=== PATIENT | female | born 1950 | race Caucasian/White ===

== ENCOUNTER → 2020-09-25 09:58 | Outpatient (CLI) | payer MEDICARE, OTHER, SELFPAY ==
--- NOTE | 2020-09-25 10:02 | US_ITS ---
STUDY: RENAL ULTRASOUND - COMPLETE REASON FOR EXAM: Female, 70 years old. H/O INTRACRANIAL ANEURYSM TECHNIQUE: Ultrasound evaluation of the kidneys was performed with real-time and static cartwright-scale imaging. COMPARISON: None. FINDINGS: RIGHT KIDNEY: Normal location of the right kidney, which is normal in size. The right kidney measures 9.6 cm x 4.2 cm x 4.3 cm. There is a normal cortex of the right kidney. The renal cortex measures 1.3 cm. There is no right renal mass or cyst. There are no right renal calculi. There is no right hydronephrosis. DISTAL RIGHT URETER: There is non-visualization of the distal right ureter. There is no demonstrated right ureterovesical junction calculus. There is a visualized right ureteral jet. LEFT KIDNEY: Normal location of the left kidney, which is normal in size. The left kidney measures 9.1 cm x 4.9 cm x 4.9 cm. There is a normal cortex of the left kidney. The renal cortex measures 1.5 cm. There is no left renal mass or cyst. There are no left renal calculi. There is no left hydronephrosis. DISTAL LEFT URETER: There is non-visualization of the distal left ureter. There is no demonstrated left ureterovesical junction calculus. There is a visualized left ureteral jet. BLADDER: The distended urinary bladder has a volume of 34 ml. There is a normal wall thickness of the distended urinary bladder. There is no demonstrated mass within the urinary bladder. There are no demonstrated bladder calculi. US/Kidney and Bladder IMPRESSION: Normal ultrasound of the kidneys and urinary bladder. Electronically Signed: Ramon Victor, at 12:36 EST , Service support ,
== END ==
PROVIDERS: PCP Family Medicine; Referring Provider Family Medicine; Visit Provider Family Medicine
DX: Z86.79 Personal history of other diseases of the circulatory system (principal)
CPT/HCPCS: 76770

== ENCOUNTER → 2020-10-07 11:06 | Outpatient (CLI) | payer MEDICARE, OTHER, SELFPAY ==
[2020-10-07 11:55] LABS: Amphetamine Urine VISTA NEGATIVE (<1000 ng/mL); Barbiturate Urine VISTA NEGATIVE (< 200 ng/mL); Benzodiazepine Urine VISTA NEGATIVE (< 200 ng/mL); Cocaine Urine VISTA NEGATIVE (< 300 ng/mL); Ecstacy Urine VISTA NEGATIVE (< 500 ng/mL); Methadone Urine VISTA NEGATIVE (< 300 ng/mL); PCP Urine VISTA NEGATIVE (< 25 ng/mL); THC Urine VISTA NEGATIVE (< 50 ng/mL); Vista UDS pH Range 6
== END ==
PROVIDERS: PCP Family Medicine; Referring Provider Anesthesiology Pain Medicine; Visit Provider Anesthesiology Pain Medicine
DX: F11.20 Opioid dependence, uncomplicated (principal)
CPT/HCPCS: 80307

== ENCOUNTER → 2020-10-13 11:15 | Outpatient (CLI) | payer MEDICARE, OTHER, SELFPAY ==
[2020-10-13 12:52] LABS: ALB/GLOB Ratio 1.1 RATIO (0.9-2.4); AST(SGOT) 39 U/L (15-37); Alanine Aminotransfer ALT/SGPT 51 U/L (13-56); Albumin, Serum 3.6 g/dL (3.2-5.0); Alkaline Phosphatase 91 U/L (45-117); Anion Gap 4 (5-15); BUN 16 mg/dL (7-18); BUN/Creat Ratio 18.7 RATIO (10-20); Calcium,Total 8.8 mg/dL (8.5-10.1); Chloride 108 mmol/L (98-107); Cholesterol 152 mg/dL (200); Creatinine, Serum 0.86 mg/dL (0.55-1.02); EST Glomerular Filtration Rate 70 mL/min (>60); Est Glom Filt Rate - Afr Amer 84 mL/min (>60); Globulin 3.2 g/dL (2.2-4.2); Glucose 90 mg/dL (74-106); High Density Lipoprotein 74 mg/dL; Potassium 3.7 mmol/L (3.5-5.1); Protein, Total 6.8 g/dL (6.4-8.2); Sodium Level 140 mmol/L (136-145); Thyroid Stim Hormone (TSH) 3.56 uIU/mL (0.358-3.74); Triglycerides 113 mg/dL; Very Low Density Lipoprotein 23 mg/dL (5-40)
== END ==
PROVIDERS: PCP Family Medicine; Visit Provider Family Medicine
DX: E78.5 Hyperlipidemia, unspecified (principal); K59.09 Other constipation
CPT/HCPCS: 36415; 80053; 80061; 84443

== ENCOUNTER → 2020-12-21 15:46 | Outpatient (CLI) | payer MEDICARE, OTHER, SELFPAY ==
[2020-12-21 17:51] LABS: Absolute Lymphocyte Count 1.69 X10^3/uL (0.83-4.51); Absolute Neutrophil Count 4.3 X10^3/uL (2.0-7.7); Basophil# 0.08 X10^3/uL; Basophil% 1.2 % (0-1); Eosinophil# 0.23 X10^3/uL; Eosinophils% 3.5 % (0-5); Hematocrit 40.6 % (37-47); Hemoglobin 12.7 g/dL (12.0-15.0); Lymphocyte # 1.69 X10^3/ul (4.0); Lymphocyte % 25.4 % (19-41); Mean Corp Hgb Conc 31.3 g/dL (32-36); Mean Corpuscular Volume 95.8 fL (81-99); Mean Platelet Vol. 10.3 fl (6.2-12.0); Monocyte# 0.36 X10^3/uL; Monocyte% 5.4 % (0-10); NRBC Flagged by Analyzer 0 % (0-5); Neutrophil # 4.28 X10^3/uL (2.7-7.7); Neutrophil % 64.2 % (47-70); Platelet Count 395 K/mm3 (150-450); RBC Distribution Width CV 12.5 % (11.6-14.6); RBC Distribution Width SD 44.3 fl (35.1-43.9); Red Blood Count 4.24 M/mm3 (4.2-5.4); White Blood Count 6.7 K/mm3 (4.4-11.0)
[2020-12-21 17:58] LABS: AST(SGOT) 21 U/L (15-37); Alanine Aminotransfer ALT/SGPT 25 U/L (13-56); Albumin, Serum 4.1 g/dL (3.2-5.0); Alkaline Phosphatase 83 U/L (45-117); Amylase 45 U/L (25-115); Bilirubin, Direct 0.09 mg/dL (0.00-0.30); Lipase 130 U/L (73-393); Protein, Total 7.1 g/dL (6.4-8.2)
== END ==
PROVIDERS: PCP Family Medicine; Visit Provider Family Medicine
DX: R10.9 Unspecified abdominal pain (principal)
CPT/HCPCS: 36415; 80076; 82150; 83690; 85025

== ENCOUNTER → 2021-01-11 16:46 | Outpatient (CLI) | payer MEDICARE, OTHER, SELFPAY ==
--- NOTE | 2021-01-11 16:50 | RAD_ITS ---
STUDY: X-RAY CHEST REASON FOR EXAM: Female, 70 years old. CHRONIC COUGH TECHNIQUE: PA and lateral views of the chest. COMPARISON: None. FINDINGS: There are 2 separate 1 cm nodules in the lower left lung which likely represent calcified granulomata. Correlation with prior chest x-rays or chest CT is recommended. There is no demonstrated pleural abnormality. Normal size heart. Normal mediastinum and bakari. Normal visualized pulmonary arteries. Normal visualized aortic arch and descending thoracic aorta. Normal visualized thoracic spine. Normal visualized ribs, clavicles, and shoulders. There is no demonstrated abnormality of the visualized soft tissue structures of the upper abdomen. RAD/Chest PA and Lateral IMPRESSION: 2 left lung nodules in correlation with prior chest x-rays or chest CT is recommended. Electronically Signed: Edin Bridges MD at 15:27 EDT Tel , Service support ,
== END ==
PROVIDERS: PCP Family Medicine; Referring Provider Family Medicine; Visit Provider Family Medicine
DX: R05 Cough (principal)
CPT/HCPCS: 71046

== ENCOUNTER → 2021-01-22 08:06 | Outpatient (CLI) | payer MEDICARE, OTHER, SELFPAY ==
--- NOTE | 2021-01-22 08:10 | CT_ITS ---
STUDY: CT CHEST WITH CONTRAST REASON FOR EXAM: Female, 70 years old. CHRONIC COUGH for 10 years. Recurrent bronchitis. Questionable left lower lobe nodules. RADIATION DOSAGE (If Supplied By Facility): CTDIvol = ( 8.77 ) mGy, DLP = ( 275.41 ) mGycm TECHNIQUE: Transaxial imaging was performed following intravenous administration of IV 100mL Isovue-300. Multiplanar coronal and sagittal images were reformatted. Individualized dose optimization techniques were used for this CT. COMPARISON: Comparison is made with prior chest radiograph dated 01/11/2021. FINDINGS: Small bilateral axillary lymph nodes. 27.9 mm partially calcified granuloma in the posterior aspect of the right upper lobe. There is a 7.2 mm partially calcified nodule in the superior lateral segment of the left lower lobe. There is also evidence of a 7.6 mm partially calcified nodule in the peripheral lateral aspect of the left lower lobe. There is no demonstrated pleural abnormality. Normal heart and pericardium. Normal mediastinum. Normal hilar regions. Normal enhanced pulmonary arteries. Normal aorta arch and descending thoracic aorta. Normal osseous structures. There is a 1.3 cm cyst in the upper lateral aspect of the spleen. CT/Chest WITH Contrast IMPRESSION: Subcentimeter bilateral calcified granulomas. Small cyst in the upper lateral aspect of the spleen. Electronically Signed: Ramon Victor MD at 12:46 EDT , Service support ,
--- NOTE | 2021-01-23 08:57 | PFTCOMP ---
INTRODUCTION: The patient is a 70-year-old female that presents for pulmonary function studies secondary to a diagnosis of chronic cough. Respiratory therapy reports good patient effort. Bronchodilators were used during testing. INTERPRETATION: Forced expiration spirometry demonstrates no evidence of a large airways obstructive ventilatory defect. There was no significant response to aerosolized bronchodilators. Spirograms are of good quality and plateau normally. The respiratory flow volume loop is normal. Body plethysmography was performed and reveals lung volumes to be within normal limits. Diffusing capacity by single breath CO is also within normal limits. IMPRESSION: Grossly normal pulmonary function studies.
== END ==
PROVIDERS: PCP Family Medicine; Referring Provider Family Medicine; Visit Provider Family Medicine
DX: R05 Cough (principal); R91.1 Solitary pulmonary nodule
CPT/HCPCS: 71260; 94060; 94726; 94729; Q9967

== ENCOUNTER → 2021-07-12 16:08 | Outpatient (CLI) | payer MEDICARE, OTHER, SELFPAY ==
[2021-07-12 17:20] LABS: Erythrocyte Sedimentation Rate 1 mm/hr (0-30)
[2021-07-14 17:25] LABS: Angiotensin Convert Enzyme 39 U/L (14-82)
== END ==
PROVIDERS: PCP Family Medicine; Referring Provider Internal Medicine Pulmonary Disease; Visit Provider Internal Medicine Pulmonary Disease
DX: R05.9 Cough, unspecified (principal)
CPT/HCPCS: 36415; 82164; 85652

== ENCOUNTER → 2021-07-30 11:36 | Outpatient (CLI) | payer MEDICARE, OTHER, SELFPAY ==
--- NOTE | 2021-07-30 11:38 | RAD_ITS ---
PROCEDURE: LUMBAR MYELOGRAM DATE OF EXAMINATION: 07/30/2021. INDICATION: Female, 71 years old. Low back pain. PHYSICIAN: Ramon Victor M.D. CONSENT: The patient''s history and physical findings were reviewed. The lumbar myelogram procedure was discussed with the patient prior to signing a consent. SEDATION: Local anesthesia with 5 mL of 1% lidocaine was used. FLUOROSCOPY TIME (if supplied): (1:54) minutes/seconds. 4 images were obtained. Injection Information: 20 cc of ISOVUE-M 200 Number of images obtained: 4 TECHNIQUE: Digital fluoroscopy was used to identify a safe approach for the lumbar myelogram. The back was prepped and draped in usual fashion. Local anesthesia was utilized. Under fluoroscopic guidance a 22-gauge spinal needle was inserted into the spinal canal at the L2-L3 level. Clear spinal fluid was seen. 20 mL of Isovue 200 M was injected into the spinal canal. There is good opacification of the spinal fluid. There is evidence of a moderate degree of spinal stenosis at the L3-L4, and L4-L5 levels. Minimal anterior listhesis of L3 on L4. Multilevel disc space narrowing. There is no extradural defects. RAD/Lumbar Myelogram IMPRESSION: Spinal stenosis at the L3-L4 and L4-L5 levels. CT scan will follow The patient tolerated the procedure well. Electronically Signed: Ramon Victor MD at 13:39 EST , Service support ,
--- NOTE | 2021-07-30 11:38 | CT_ITS ---
STUDY: CT LUMBAR SPINE WITH INTRATHECAL CONTRAST (LUMBAR CT MYELOGRAM) REASON FOR EXAM: Female, 71 years old. Pain -- with Myelogram RADIATION DOSAGE (If Supplied By Facility): CTDIvol = ( 13.84 ) mGy, DLP = ( 391.88 ) mGycm TECHNIQUE: Transaxial images were obtained from the L1 vertebra through the S1 level, following intrathecal administration of 20 ml of ISOVUE-M 200 contrast material, performed by Dr. Kayleigh CANDELARIA. Please refer to this physicians technical notes for procedural details. Coronal and sagittal reconstructions were obtained. Individualized dose optimization techniques were used for this CT. COMPARISON: None. FINDINGS: Normal lumbar lordosis. There is no substantial scoliosis. Normal vertebrae of the lumbar spine. There is dependent layering of contrast material in the distal thecal sac. The conus medullaris terminates in a normal position at the L1-L2 level. There is no demonstrated cauda equina nerve root abnormality or intraspinal mass. L1-2: Normal endplates. Normal disc height and morphology. Normal bilateral facet joints. Normal central canal and bilateral lateral recesses. Normal bilateral intervertebral neural foramina. L2-3: Normal endplates. Normal disc height and morphology. Normal bilateral facet joints. Normal central canal and bilateral lateral recesses. Normal bilateral intervertebral neural foramina. L3-4: Marked degree of disc space narrowing and disc degeneration with subchondral sclerosis. Grade 1 anterolisthesis of L3 on L4. Marked degree of central canal stenosis due to the hypertrophy of the facet joints as well as the ligamenta flava. Mild diffuse posterior disc bulge. The spinal stenosis is also caused by the anterior listhesis of L3 on L4. L4-5: The disc spaces relatively well maintained. Mild degree of diffuse anterior disc bulge causing minimal deformity of the thecal sac. Mild degree of central canal stenosis. Hypertrophy of the facet joints and ligamentum flavum. L5-S1: Normal endplates. Normal disc height and morphology. Normal bilateral facet joints. Normal central canal and bilateral lateral recesses. Normal bilateral intervertebral neural foramina. Normal visualized sacroiliac joints. Normal visualized paraspinous soft tissue structures. CT/Spine Lumbar WITH Contrast IMPRESSION: Spinal stenosis at the L3-L4 level caused by combination of anterior listhesis of L3 on L4 as well as facet joint osteoarthritis and hypertrophy of the ligamentum flavum and diffuse central disc bulge. Electronically Signed: Ramon Victor MD at 14:34 EST , Service support ,
[2021-07-30 12:03] VITALS: BP 108/49; PULSE 80; RESP 16; TEMP 36.9; O2SAT 98; BMI 24.7
[2021-07-30] MEDS: Lidocaine 2% (5ml sdv) 5 ML VIAL.MPF INFILT (12:15)
[2021-07-30 12:48] VITALS: BP 105/49; PULSE 65; RESP 16; O2SAT 94
[2021-07-30 13:42] VITALS: BP 105/54; PULSE 66; RESP 16; O2SAT 98
== END | disposition home or self-care (01) ==
PROVIDERS: PCP Registered Nurse; Referring Provider Orthopaedic Surgery; Visit Provider Orthopaedic Surgery
DX: M51.36 Other intervertebral disc degeneration, lumbar region (principal)
CPT/HCPCS: 62304; 72132

== ENCOUNTER → 2021-08-09 16:37 | Outpatient (CLI) | payer MEDICARE, OTHER, SELFPAY ==
--- NOTE | 2021-08-09 16:45 | RAD_ITS ---
INDICATION: HIP/BACK PAIN EXAMINATION/TECHNIQUE: X-RAY - LEFT XR Hip Unilateral with Pelvis when performed; 2-3 Views 3 VIEWS. AP view the pelvis. 2 views of the left hip. COMPARISON: Lumbar spine radiograph from 07/02/2021. FINDINGS: Left hip total arthroplasty postoperative changes with intact appearance of the surgical hardware. No acute fracture or dislocation. Moderate right femoral acetabular joint osteoarthritis. Mild pubic symphysis degenerative changes. Bilateral sacroiliac joints are intact. No destructive osseous lesions. Soft tissues are unremarkable. Visualized abdomen is unremarkable. RAD/HIP, UNI W/ Pelvis 2-3 Views IMPRESSION: 1. Left hip total arthroplasty postoperative changes with intact appearance of the surgical hardware. 2. No acute findings. Electronically Signed: Vladislav Morejon MD at 8:12 EST Tel , Service support ,
== END ==
PROVIDERS: PCP Registered Nurse; Referring Provider Anesthesiology Pain Medicine; Visit Provider Anesthesiology Pain Medicine
DX: M54.9 Dorsalgia, unspecified (principal); M25.559 Pain in unspecified hip
CPT/HCPCS: 73502

== ENCOUNTER → 2021-09-06 09:23 | Outpatient (CLI) | payer MEDICARE, OTHER, SELFPAY ==
--- NOTE | 2021-09-06 09:27 | BI_ITS ---
MAMMOGRAPHY - UNILATERAL DIAGNOSTIC: LEFT BREAST REASON FOR EXAM: Female, 71 years old. Abnormal screening mammogram. PERTINENT HISTORY: Non-contributory. TECHNIQUE: Compression spot views and 90 degree lateral view of the left breast were obtained. CAD: Full Field Digital Mammography with Computer Added Detection was performed. COMPARISON: Comparison is made with prior abdomen examination dated 07/28/2021 FINDINGS: Breast Composition: There are scattered areas of fibroglandular density. There are no dominant masses or suspicious calcifications. The previously seen area of architectural distortion is not seen at this time. No other significant abnormalities are identified. BI/DIAG MAMM W/CAD, UNILAT IMPRESSION: Stable unilateral diagnostic mammogram. One year follow-up mammogram recommended. (A) ASSESSMENT CATEGORY: BIRADS Category 2: Benign. A letter regarding these results will be sent to the patient by the facility within 30 days. Approximately 10% of breast cancers are not detected by mammography. A normal mammogram should not delay biopsy of a clinically suspicious abnormality. Electronically Signed: Ramon Victor MD at 10:49 EST , Service support ,
[2021-09-06 16:39] LABS: Amphetamine Urine VISTA NEGATIVE (<1000 ng/mL); Barbiturate Urine VISTA NEGATIVE (< 200 ng/mL); Benzodiazepine Urine VISTA NEGATIVE (< 200 ng/mL); Cocaine Urine VISTA NEGATIVE (< 300 ng/mL); Ecstacy Urine VISTA NEGATIVE (< 500 ng/mL); Methadone Urine VISTA NEGATIVE (< 300 ng/mL); PCP Urine VISTA NEGATIVE (< 25 ng/mL); THC Urine VISTA NEGATIVE (< 50 ng/mL); Vista UDS pH Range 5
== END ==
PROVIDERS: PCP Registered Nurse; Referring Provider Family Medicine; Visit Provider Family Medicine
DX: R92.8 Other abnormal and inconclusive findings on diagnostic imaging of breast (principal); F11.20 Opioid dependence, uncomplicated
CPT/HCPCS: 77065; 80307

== ENCOUNTER 2021-10-04 14:43 | Outpatient (CLI) | payer MEDICARE, OTHER, SELFPAY ==
--- NOTE | 2021-10-04 14:46 | RAD_ITS ---
STUDY: X-RAY - ABDOMEN/PELVIS REASON FOR EXAM: Female, 71 years old. ABD PAIN TECHNIQUE: AP supine and upright views of the abdomen and pelvis. COMPARISON: None. FINDINGS: Normal visualized lung bases. There is an unremarkable bowel gas pattern. There is no demonstrated free abdominal air. The visualized liver, spleen and kidneys are grossly normal in size and morphology. Normal soft tissue structures. Mild levoscoliosis lumbar spine with degenerative disc disease. Status post left hip arthroplasty. RAD/Abd Inc Decub and/or Erect IMPRESSION: Normal x-ray examination of the abdomen and pelvis. Electronically Signed: Edin Bridges MD at 15:12 EST Tel , Service support ,
--- NOTE | 2021-10-04 14:55 | RAD_ITS ---
STUDY: X-RAY CHEST REASON FOR EXAM: Female, 71 years old. SOB TECHNIQUE: PA and lateral views of the chest. COMPARISON: 01/11/2021 FINDINGS: Patchy alveolar opacities in both lungs consistent with bilateral pneumonia. There is no demonstrated pleural abnormality. Normal size heart. Normal mediastinum and bakari. Normal visualized pulmonary arteries. Normal visualized aortic arch and descending thoracic aorta. Normal visualized thoracic spine. Normal visualized ribs, clavicles, and shoulders. There is no demonstrated abnormality of the visualized soft tissue structures of the upper abdomen. RAD/Chest PA and Lateral IMPRESSION: Bilateral patchy pneumonia. Electronically Signed: Edin Bridges MD at 15:12 EST Tel , Service support ,
[2021-10-04 17:51] LABS: Absolute Neutrophil Count 3.1 X10^3/uL (2.0-7.7); Basophil# 0.07 X10^3/uL; Basophil% 1.2 % (0-1); Eosinophil# 0.21 X10^3/uL; Eosinophils% 3.7 % (0-5); Hematocrit 36.7 % (37-47); Lymphocyte % 33.6 % (19-41); Mean Corp Hgb Conc 32.7 g/dL (32-36); Mean Corpuscular Hgb 30.8 pg (27.0-32.0); Mean Corpuscular Volume 94.1 fL (81-99); Mean Platelet Vol. 10.9 fl (6.2-12.0); Monocyte# 0.37 X10^3/uL; Monocyte% 6.5 % (0-10); NRBC Flagged by Analyzer 0 % (0-5); Neutrophil % 54.8 % (47-70); Platelet Count 354 K/mm3 (150-450); RBC Distribution Width CV 12.4 % (11.6-14.6); RBC Distribution Width SD 42.5 fl (35.1-43.9); White Blood Count 5.7 K/mm3 (4.4-11.0)
[2021-10-04 18:08] LABS: ALB/GLOB Ratio 1.2 RATIO (0.9-2.4); AST(SGOT) 27 U/L (15-37); Alanine Aminotransfer ALT/SGPT 33 U/L (13-56); Albumin, Serum 3.9 g/dL (3.2-5.0); Alkaline Phosphatase 77 U/L (45-117); Anion Gap 8 (5-15); BUN 13 mg/dL (7-18); Calcium,Total 10.2 mg/dL (8.5-10.1); Chloride 102 mmol/L (98-107); Creatinine, Serum 0.87 mg/dL (0.55-1.02); EST Glomerular Filtration Rate 68 mL/min (>60); Est Glom Filt Rate - Afr Amer 82 mL/min (>60); Ferritin 48 ng/mL (8-252); Globulin 3.3 g/dL (2.2-4.2); Glucose 112 mg/dL (74-106); Iron 58 ug/dL (50-170); Potassium 3.4 mmol/L (3.5-5.1); Protein, Total 7.2 g/dL (6.4-8.2); Sodium Level 139 mmol/L (136-145)
== END 2021-10-04 23:59 | disposition short-term general hospital (02) ==
LOC: MTLAB 14:45
PROVIDERS: PCP Family Medicine; Referring Provider Family Medicine; Visit Provider Family Medicine
DX: R10.9 Unspecified abdominal pain (principal); R42 Dizziness and giddiness; R06.02 Shortness of breath
CPT/HCPCS: 36415; 71046; 74019; 80053; 82728; 83540; 85025

== ENCOUNTER 2021-10-05 16:14 | Outpatient (CLI) | payer MEDICARE, OTHER, SELFPAY | END 2021-10-05 23:59 | disposition short-term general hospital (02) | PROVIDERS: PCP Family Medicine; Referring Provider Family Medicine; Visit Provider Family Medicine | DX: Z20.822 Contact with and (suspected) exposure to COVID-19 (principal) | CPT/HCPCS: 87635; U0003; U0005 ==

== ENCOUNTER → 2022-02-07 | Outpatient (CLI) | payer MEDICARE, OTHER, SELFPAY ==
[2022-02-07 14:34] LABS: Amphetamine Urine VISTA NEGATIVE (<1000 ng/mL); Barbiturate Urine VISTA NEGATIVE (< 200 ng/mL); Benzodiazepine Urine VISTA NEGATIVE (< 200 ng/mL); Cocaine Urine VISTA NEGATIVE (< 300 ng/mL); Ecstacy Urine VISTA NEGATIVE (< 500 ng/mL); Methadone Urine VISTA NEGATIVE (< 300 ng/mL); PCP Urine VISTA NEGATIVE (< 25 ng/mL); THC Urine VISTA NEGATIVE (< 50 ng/mL); Vista UDS pH Range 7
== END | disposition home or self-care (01) ==
LOC: LAB 13:05
PROVIDERS: PCP Family Medicine; Referring Provider Anesthesiology Pain Medicine; Visit Provider Anesthesiology Pain Medicine
DX: F11.20 Opioid dependence, uncomplicated (principal)
CPT/HCPCS: 80307

== ENCOUNTER → 2022-08-09 | Outpatient (CLI) | payer MEDICARE, OTHER, SELFPAY ==
--- NOTE | 2022-08-09 18:21 | US_ITS ---
STUDY: ABDOMINAL ULTRASOUND - RIGHT UPPER QUADRANT REASON FOR VISIT: Female, 72 years old RUQ PAIN SEVERE TECHNIQUE: Ultrasound evaluation of the right upper quadrant was performed with real-time and static reyes-scale imaging. TECHNICAL QUALITY: Adequate. COMPARISON: None. FINDINGS: Liver: The liver measures 14.6 cm. There is normal echogenicity of the liver. The bile ducts are within normal limits. There is hepatic color flow. The direction of portal flow is hepatopetal. There is no demonstrated mass lesion. Gallbladder: Normal distended gallbladder. The gallbladder wall measures 2 mm. There is a negative sonographic Lynn''s sign. There is no pericholecystic fluid. There are no gallstones. Common Bile Duct (C.B.D.): The common bile duct measures 5 mm. Pancreas: Normal size of the head, body and tail of the pancreas. There is normal echogenicity of the pancreas. There is no demonstrated pancreatic mass or cyst. Right Kidney: Normal size of the right kidney. The right kidney measures 9.5 cm. Normal renal cortex. The right cortex measures 1.2 cm. There is 1.1 cm cyst There is no right hydronephrosis. US/Abdomen Limited IMPRESSION: No gallstones or biliary dilatation. Small renal cyst. Electronically Signed: Omer Ramirez MD at 19:17 EST ,
== END | disposition home or self-care (01) ==
LOC: US 18:19
PROVIDERS: PCP Family Medicine; Visit Provider Family Medicine
DX: R10.11 Right upper quadrant pain (principal)
CPT/HCPCS: 76705

== ENCOUNTER → 2023-03-16 | Outpatient (CLI) | payer MEDICARE, OTHER, SELFPAY ==
--- NOTE | 2023-03-16 10:56 | BD_ITS ---
STUDY: DUAL ENERGY X-RAY ABSORPTIOMETRY / DXA REASON FOR EXAM: Female, 72 years old. [id number] TECHNIQUE: Bone Mineral Density (BMD) measurements of lumbar spine and right hip were obtained. COMPARISON: None. FINDINGS: Lumbar Spine (L1-L4): g/cm2 (0.905) / T-score (-1.0) / Z-score (1.3) Findings are suggestive of osteopenia with a low fracture risk. Right Femur Total: g/cm2 (0.802) / T-score (-1.2) / Z-score (0.6) Right Femoral Neck: g/cm2 (0.647) / T-score (-1.8) / Z-score (0.2) BD/Dexa Bone Density Study IMPRESSION: The patient is considered osteopenic as outlined below according to World Tom Organization (WHO) criteria with a moderate fracture risk. Reference Information: The T-score is the number of standard deviations above or below the standard which is normal for young adults at their peak bone mineral density. The World Health Organization (WHO) interprets the T-scores as follows: Above -1 Normal bone density Between -1 and -2.5 Osteopenia Equal to / or below -2.5 Osteoporosis As a practical clinical guideline, osteopenia may be graded as follows: Mild -1 through -1.5 Moderate -1.6 through -2.0 Severe -2.1 through -2.4 The Z-score is the number of standard deviations above or below age-matched controls. A Z-score of less than -1.5 would be considered abnormal. References: 1. NIH Osteoporosis and Related Bone Diseases www osteo.org 2. International Society for Clinical Densitometry www iscd.org 3. National Osteoporosis Foundation www nof.org Electronically Signed: Ramon Victor MD at 10:04 EDT ,
== END | disposition home or self-care (01) ==
LOC: OPBD 10:37
PROVIDERS: PCP Family Medicine; Referring Provider Family Medicine; Visit Provider Family Medicine
DX: N95.9 Unspecified menopausal and perimenopausal disorder (principal)
CPT/HCPCS: 77080

== ENCOUNTER → 2023-03-20 | Outpatient (CLI) | payer MEDICARE, OTHER, SELFPAY ==
[2023-03-20 15:02] LABS: Absolute Lymphocyte Count 1.31 X10^3/uL (0.83-4.51); Absolute Neutrophil Count 3.9 X10^3/uL (2.0-7.7); Basophil# 0.08 X10^3/uL; Basophil% 1.4 % (0-1); Eosinophil# 0.26 X10^3/uL; Eosinophils% 4.4 % (0-5); Hematocrit 38.2 % (37-47); Hemoglobin 11.9 g/dL (12.0-15.0); Lymphocyte # 1.31 X10^3/ul (0.83-4.51); Lymphocyte % 22.2 % (19-41); Mean Corp Hgb Conc 31.2 g/dL (32-36); Mean Corpuscular Volume 96.2 fL (81-99); Mean Platelet Vol. 9.6 fl (6.2-12.0); Monocyte# 0.31 X10^3/uL; Monocyte% 5.2 % (0-10); NRBC Flagged by Analyzer 0 % (0-5); Neutrophil # 3.94 X10^3/uL (2.7-7.7); Neutrophil % 66.6 % (47-70); Platelet Count 355 K/mm3 (150-450); RBC Distribution Width CV 12.5 % (11.6-14.6); RBC Distribution Width SD 43.6 fl (35.1-43.9); Red Blood Count 3.97 M/mm3 (4.2-5.4); White Blood Count 5.9 K/mm3 (4.4-11.0)
[2023-03-20 15:19] LABS: CRP < 2.90 mg/L (0.0-3.0)
[2023-03-20 16:14] LABS: Erythrocyte Sedimentation Rate 5 mm/hr (0-30)
== END | disposition home or self-care (01) ==
LOC: MTLAB 14:19 → LAB 14:28
PROVIDERS: PCP Family Medicine; Referring Provider Orthopaedic Surgery; Visit Provider Orthopaedic Surgery
DX: M25.552 Pain in left hip (principal); Z86.79 Personal history of other diseases of the circulatory system; Z96.649 Presence of unspecified artificial hip joint
CPT/HCPCS: 36415; 83605; 85025; 85652; 86140

== ENCOUNTER 2023-05-11 11:00 | Outpatient (RCR) | payer MEDICARE, OTHER, SELFPAY ==
--- NOTE | 2023-03-14 08:22 | HP.PTEVAL ---
Patient's Visit Information INDY CLANCY is a 72 year old F referred to Physical Therapy by KIKI Gandhi with a diagnosis of SPINAL STENOSIS LUMBAR , INTERVERTEBRAL DISC DEGENERATION ,KNEE OA. Date of Evaluation: 03/14/23 Physical Therapist: Gideon Zaragoza, PT, Cert MDT, OCS - Visit Plan Frequency: 2x /Week Duration: 4 Weeks Plan: PT INTERVTIONS AQUATIC THERAPY DLS ,LEFTQUADS/HAMS/HIP STRENGTHNEING ,POSTURAL EX'S - Subjective This 72 y/o female presents to physical therapy left hip hip ,knee pain and back pain. Patient has had hip pain September 2022 with h/o left THR [address] marquez possible bursitis . Patient x-rays showed everything looked fine. Patient had knee pain and had injection which helped. Patient had x-rays and CATSCAN 2020 showed severe DDD and stenosis. Patient has seen Dr Kasper for back pain and is nor bad enough to have surgery. Patient location lateral hip /pelvis to groin . Patient mainly c/o of lateral hip pain. Medication Celebrex. Aggravating factors sitting ,unbale to lift ,bending ,twisting . Alleviating factors more tolerable. Patient has rollator and uses cane. Patient c/o paresthesia/tingling left calf and thigh. Patient coughing/sneezing-. Bowel /bladder- Patient has pain with stairs and is difficult. Patient pain affects sleeping. Patient pain and difficulty from chair. Patient has had pain management in past. Patient plan get injection epidural Dr Kang. Patient condition affects QOL and function. Patient goals to decrease pain. SOCIAL: . VOCATION: retired - Pain Left Knee Pain Intensity (Out of 10): 9 Pain Intensity Range: 10 - Objective POSTURE: mild forward posture hip/knees flexes. NEURO: c/o paresthesia/tingling ,reflexes L3-4,L4-5,L5-S1 1/3. PALPATION: inferior pelvis. GAIT: ambulates with antalgic gait decrease stance with pain antalgic left side slow jayme. LUMBAR ROM: flexion mod loss pain ,extension mod loss pain ,side glides mod loss pain. HIP AROM: hip flexion 105 degrees, hip abduction 40 degrees. KNEE AROM: 0-125 degrees. MMT:( peak force) left quads 0 ,hip abduction ,hip flexion 0 , hamstrings 5.8 - Special Tests L/S Slump test left side: Negative L/S Slump test right side: Negative L/S Left Straight Leg Raise: Negative L/S Right Straight Leg Raise: Negative Lumbar Standing: Flexion - Mechanical Response: No effect Lumbar Standing: Flexion - Symptoms During Testing: Increases Lumbar Standing: Flexion - Symptoms After Testing: Worse Comments:: hip Lumbar Standing: Extension - Mechanical Response: No effect Lumbar Standing: Extension - Symptoms During Testing: Increases Lumbar Standing: Extension - Symptoms After Testing: Worse Comments:: hip Lumbar Standing: Right Side Glides - Mechanical Response: No effect Lumbar Standing: Right Side [place] - Symptoms During Testing: No effect Lumbar Standing: Right Side [place] - Symptoms After Testing: No effect Lumbar Standing: Left Side [place] - Mechanical Response: No effect Lumbar Standing: Left Side [place] - Symptoms During Testing: Increases Lumbar Standing: Left Side [place] - Symptoms After Testing: Worse Comments:: hip L Hip Scour: Negative L Knee Gagandeep - Meniscus: Negative L Knee Valgus - MCL: Negative L Knee Varus - LCL: Negative L Knee Patellar Apprehension - PFS: Negative - Balance/Special Test Scores Lower Extremity Functional Score: 14 - Goals Goal 1:: I with Aquatic therapy for back and hip Goal Time Frame: 4-6 Weeks Goal 2:: Patient to demonstrate 50% improvement with decrease hip pain to improve gait Goal Time Frame: 4-6 Weeks Goal 3:: Patient to improve peak force quads/hams/hip by 10# to improve gait Goal Time Frame: 4-6 Weeks Goal 4:: Patient to improve lumbar ROM for function of recovery to tie shoes Goal Time Frame: 4-6 Weeks Goal 5:: Patient to improve LFES score by 5 points to improve gait Goal Time Frame: 4-6 Weeks Goal 6:: Patient gait with less antalgic gait 50% with less pain Goal Time Frame: 4-6 Weeks - Rehabilitation Potential Physical Therapy Diagnosis: This patient has lumbar stenosis with pain lateral hip pelvis to groin worse with positioning ,motion testing with mod loss of motion with pain ,weakness of hip and knee, hip looks good confirms [facility] showed severe DDD and stenosis thus benefit from skilled PT Rehabilitation Potential: Good - Anticipated Interventions Patient/Client Instruction: Educate patient on: Condition, Plan of Care For the Purpose of:: To decrease pain, To increase ROM, To improve muscle performance and motor function, To increase tolerance to activity/condition/position, To improve ability of physical actions for home/community/work/leisure, To improve health of tissue, To decrease soft tissue restriction, To increase flexibility/ROM, To prevent re-injury Therapeutic Exercise to Include: Strength training, Endurance training, Balance training, Postural training, Flexibilty training, In an aquatic setting, Active ROM, Dynamic Lumbar Stabilization Comment: HIP/KNEE For the Purpose of:: To decrease pain, To increase ROM, To improve muscle performance and motor function, To increase tolerance to activity/condition/position, To improve ability of physical actions for home/community/work/leisure, To improve health of tissue, To decrease soft tissue restriction, To increase flexibility/ROM, To improve endurance, To improve balance, To improve tolerance to ADL's Thank you for the opportunity to evaluate your patient. For Medicare and Medicare HMO plans, please review the plan of care and approve it. It will need to be FAXED BACK to us at [phone] for Medicare purposes. For Medicare only, by signing this I certify the plan of care. Please let me know if there are questions or concerns regarding this plan of care. Physician Signature: Date:
--- NOTE | 2023-04-26 11:21 | HP.PTEVAL2 ---
Patient's Visit Information Visit Information Visit Information: INDY CLANCY is a 72 year old F referred to Physical Therapy by KIKI Gandhi with a diagnosis of L greater trochanteric bursitis. Date of Evaluation: 04/25/23 Physical Therapist: Toby Montoya DPT Visit Plan Frequency: 2x /Week Duration: 4 Weeks Plan: Start with US to gluteal/piriformis region. Add in gentle piriformis stretching, progressing to glute max/med strenghtening and hip Er strengthening. Subjective Subjective: Pt. is here today for her initial evaluation with diagnosis of L greater trochanter bursitis. Pt. reports having pain for a few months now. Pt. was treated for her back and had injections, but did not change her pain much. Pt. c/o pain at her L hip, mostly in gluteal region and down her L leg. Pt. reports some N/T, but not much. Pt. did have an injection in her hip, which has helped a little bit. Pt. reports some leg weakness, but mostly pain. Pt. does have some issues. Pt. does not feel like it is her back. Pt. reports pain can be intermittent. She can walk better sometimes, then worse others. Pt. reports increased pain with standing and worse with sitting. Pain L hip: Intensity: 4 Pain Intensity Range: 3 and 8 Objective Objective: POSTURE: Pt. has flexed posture and wt. shift to R side. PALPATION: pt. had levels of pain at L gluteal region, and posterior aspect of L greater trochanter. NEURO: normal throughout. ROM: L hip: flexion 85deg, abd 45deg, ext no measured. LUMBAR SPINE: min loss throughout mild increase NW. MMT: L hip: flexion 3+/5, abd 3+5, ext 4/5. Cor strength: poor+. GAIT: pt. ambulates with antalgic pattern, but did have bouts where it was much better. No much groin pain noted. Special Tests Slump test left side: Negative Slump test right side: Negative Left Straight Leg Raise: Negative Right Straight Leg Raise: Negative Trendelenberg - Glut Medius: Positive Goals Goal 1:: LTG: Pt. to be I with HEP. Goal Time Frame: 4-6 Weeks Goal 2:: LTG: pt. to be able to ambulate with SPC with normal gait pattern without increase in symptoms. Goal Time Frame: 4-6 Weeks Goal 3:: LTG: pt. to have 4+/5 LLE strength. Goal Time Frame: 4-6 Weeks Goal 4:: STG: Pt. to sleep throughout the night without increase in symptoms. Goal Time Frame: 2-4 Weeks Goal 5:: LTG: Pt. to negotiate steps with 1 HR with reciprocal pattern without increase in symptoms. Rehabilitation Potential Physical Therapy Diagnosis: Pt. has signs and symptoms consistent with greater trochanteric bursitis. Pt. has some signs suggesting lumbar spine involvement, but others that do not. She has weakness in her leg, but has a high level of pain which is not fully consistent with trochanteric bursitis as well. I will work on her L hip to calm her symptoms and progress to strengthening in order to reduce stress to lateral hip musculature with gait and functional mobility. Rehabilitation Potential: Excellent Anticipated Interventions Patient/Client Instruction: Educate patient on: Condition, Plan of Care, Risk Factors and Benefits of Fitness Program For the Purpose of:: To improve decision making, To facilitate caregiver knowledge, To improve self management, To prevent re-injury and To improve ability to perform tasks related to life management Therapeutic Exercise to Include: Strength training, Power training, Endurance training, Balance training, Postural training, Flexibilty training, Passive ROM and Active ROM For the Purpose of:: To decrease pain, To increase ROM, To improve nutrient delivery to tissue, To increase oxygenation perfusion, To improve health of tissue, To decrease soft tissue restriction and To increase flexibility/ROM Cryotherapy (ice pack, ice massage): Yes Thermo therapy (hot pack): Yes Ultrasound (thermal/non thermal): Yes For the Purpose of:: To decrease pain, To increase ROM, To improve nutrient delivery to tissue and To increase oxygenation perfusion text: Thank you for the opportunity to evaluate your patient. For Medicare and Medicare HMO plans, please review the plan of care and approve it. It will need to be FAXED BACK to us at [phone] for Medicare purposes. For Medicare only, by signing this I certify the plan of care. Please let me know if there are questions or concerns regarding this plan of care. Physician Signature: Date:
--- NOTE | 2023-05-12 12:49 | HP.PT.NRP ---
Patient Information Patient Information: INDY CLANCY was seen in my office for initial evaluation on 03/14/23. The following Plan of Care was established for this patient: POC Established Initial Frequency: 2x /Week Initial Duration: 4 Weeks Anticipated Interventions Patient/Client Instruction: Educate patient on: Condition and Plan of Care For the Purpose of:: To decrease pain, To increase ROM, To improve muscle performance and motor function, To increase tolerance to activity/condition/position, To improve ability of physical actions for home/community/work/leisure, To improve health of tissue, To decrease soft tissue restriction, To increase flexibility/ROM and To prevent re-injury Therapeutic Exercise to Include: Strength training, Endurance training, Balance training, Postural training, Flexibilty training, In an aquatic setting, Active ROM and Dynamic Lumbar Stabilization For the Purpose of:: To decrease pain, To increase ROM, To improve muscle performance and motor function, To increase tolerance to activity/condition/position, To improve ability of physical actions for home/community/work/leisure, To improve health of tissue, To decrease soft tissue restriction, To increase flexibility/ROM, To improve endurance, To improve balance and To improve tolerance to ADL's Last Seen Last Seen: This patient was last seen in our office . Pertinent comments regarding their Physical therapy will appear below: Patient seen for PT for Aquatic Therapy for spinal stenosis and OA knee thus d/c ,but had new order for hip At this point I will be discontinuing this patient from physical therapy. I would be happy to see this patient again in the future if found appropriate by the physician. Thank you! Gideon Zaragoza, PT, Cert MDT, OCS Balance/Gait/Functional tests Balance/Special Test Scores Lower Extremity Functional Score: 0
== END 2023-05-11 19:00 | disposition home or self-care (01) ==
LOC: PT 11:00
PROVIDERS: PCP Family Medicine
DX: M17.0 Bilateral primary osteoarthritis of knee (principal); M48.061 Spinal stenosis, lumbar region without neurogenic claudication; M51.36 Other intervertebral disc degeneration, lumbar region; M70.62 Trochanteric bursitis, left hip; Z96.649 Presence of unspecified artificial hip joint
CPT/HCPCS: 97035; 97110; 97161; 97162

== ENCOUNTER → 2023-06-14 | Outpatient (CLI) | payer MEDICARE, OTHER, SELFPAY ==
[2023-06-14 13:34] LABS: Amphetamine Urine VISTA NEGATIVE (<1000 ng/mL); Barbiturate Urine VISTA NEGATIVE (< 200 ng/mL); Benzodiazepine Urine VISTA NEGATIVE (< 200 ng/mL); Cocaine Urine VISTA NEGATIVE (< 300 ng/mL); Ecstacy Urine VISTA NEGATIVE (< 500 ng/mL); Methadone Urine VISTA NEGATIVE (< 300 ng/mL); PCP Urine VISTA NEGATIVE (< 25 ng/mL); THC Urine VISTA NEGATIVE (< 50 ng/mL); Vista UDS pH Range 5
== END | disposition home or self-care (01) ==
LOC: LAB 12:29
PROVIDERS: PCP Family Medicine; Referring Provider Anesthesiology Pain Medicine; Visit Provider Anesthesiology Pain Medicine
DX: F11.20 Opioid dependence, uncomplicated (principal)
CPT/HCPCS: 80307

== ENCOUNTER 2023-06-16 13:30 | Outpatient (RCR) | payer MEDICARE, OTHER, SELFPAY | END 2023-06-16 19:00 | disposition home or self-care (01) | LOC: PT 13:30 | PROVIDERS: PCP Family Medicine | DX: M70.72 Other bursitis of hip, left hip (principal) ==

== ENCOUNTER → 2023-07-25 | Outpatient (CLI) | payer MEDICARE, OTHER, SELFPAY ==
[2023-07-25 10:34] LABS: Erythrocyte Sedimentation Rate 2 mm/hr (0-30)
[2023-07-25 10:35] LABS: Absolute Lymphocyte Count 1.83 X10^3/uL (0.83-4.51); Absolute Neutrophil Count 2.4 X10^3/uL (2.0-7.7); Basophil# 0.07 X10^3/uL; Basophil% 1.4 % (0-1); Hemoglobin 11.5 g/dL (12.0-15.0); Lymphocyte # 1.83 X10^3/ul (0.83-4.51); Lymphocyte % 36.9 % (19-41); Mean Corp Hgb Conc 31.1 g/dL (32-36); Mean Corpuscular Hgb 29.6 pg (27.0-32.0); Mean Corpuscular Volume 95.4 fL (81-99); Monocyte# 0.35 X10^3/uL; Monocyte% 7.1 % (0-10); NRBC Flagged by Analyzer 0 % (0-5); Neutrophil % 48.4 % (47-70); Platelet Count 361 K/mm3 (150-450); RBC Distribution Width CV 12.8 % (11.6-14.6); RBC Distribution Width SD 44.4 fl (35.1-43.9); Red Blood Count 3.88 M/mm3 (4.2-5.4)
[2023-07-25 11:24] LABS: CRP < 2.90 mg/L (0.0-3.0)
== END | disposition home or self-care (01) ==
LOC: LAB 10:02
PROVIDERS: PCP Family Medicine; Referring Provider Physician Assistant Surgical; Visit Provider Physician Assistant Surgical
DX: M25.552 Pain in left hip (principal)
CPT/HCPCS: 36415; 85025; 85652; 86140

== ENCOUNTER → 2023-10-17 | Outpatient (CLI) | payer MEDICARE, OTHER, SELFPAY ==
--- OUTSIDE RECORDS SUMMARY | 2023-10-17 13:50 | XMS RPT_ITS | CCD ---
Author Name Unknown Address [address] [place] [address] Organization [facility] Care Team Providers Care Wildlife Conservation Professor Name Role Phone Brock Brayan Letty Primary Care Provider [phone] Allergies Allergy Classification Reported Allergen(s) Allergy Type Date of Onset Reaction(s) Facility (1 source) NSAIDs Drug Intolerance 9 GI Upset [facility] (1 source) pneumococcal capsular polysaccharide type 1 vaccine / pneumococcal capsular polysaccharide type 10A vaccine / pneumococcal capsular polysaccharide type 11A vaccine / pneumococcal capsular polysaccharide type 12F vaccine / pneumococcal capsular polysaccharide type 14 vaccine / pneumococcal capsular polysaccharide type 15B vaccine / pneumococcal capsular polysaccharide type 17F vaccine / pneumococcal capsular polysaccharide type 18C vaccine / pneumococcal capsular polysaccharide type 19A vaccine / pneumococcal capsular polysaccharide type 19F vaccine / pneumococcal capsular polysaccharide type 2 vaccine / pneumococcal capsular polysaccharide type 20 vaccine / pneumococcal capsular polysaccharide type 22F vaccine / pneumococcal capsular polysaccharide type 23F vaccine / pneumococcal capsular polysaccharide type 3 vaccine / pneumococcal capsular polysaccharide type 33F vaccine / pneumococcal capsular polysaccharide type 4 vaccine / pneumococcal capsular polysaccharide type 5 vaccine / pneumococcal capsular polysaccharide type 6B vaccine / pneumococcal capsular polysaccharide type 7F vaccine / pneumococcal capsular polysaccharide type 8 vaccine / pneumococcal capsular polysaccharide type 9N vaccine / pneumococcal capsular polysaccharide type 9V vaccine Drug Allergy 9 Hives [facility] Medications Completed/Discontinued Medications Medication Drug Class(es) Dates Sig (Normalized) Sig (Original) ALPRAZolam 0.25 mg oral tablet (1 source) Benzodiazepine Start: 04-14-2019 ALPRAZolam (XANAX) 0.25 mg tablet Take 0.5 mg by mouth as needed. 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] Onset: 10-15-2020 10-15-2020 Chronic Results Test Name Value Interpretation Reference Range Facil ity Vital Signs Date Time Vital Sign Value Performing Clinician Fernando williamson 10-15-2020 12:53-0500 Body Temperature 98.01 [degF] [facility]let [facility]undo [facility] 10-15-2020 12:53-0500 Body weight 67.13 kg Micheletshayna Raymundo [facility] 10-15-2020 12:53-0500 BP Diastolic 62 mm[Hg] Michelet Khaygaetano [facility] 10-15-2020 12:53-0500 BP Systolic 126 mm[Hg] Micheletkristie Raymundo [facility] 10-15-2020 12:53-0500 [facility] 12:53-0500 Pulse (Heart Rate) 65 /min Michelet Raymundo [facility] 10-15-2020 12:53-0500 Pulse Oximetry 99 % Michelet Khaygaetano [facility] 10-15-2020 12:53-0500 Respiratory Rate 16 /min Micheletkristie Raymundo [facility] Encounters Encounter Date Encounter Type Care Provider Facility Start: 10-15-2020 End: 10-15-2020 Patient encounter procedure Michelet Raymundo Work Phone: [facility] Plan of Treatment Date Care Activity Detail Author Start: 05-19-2020 Influenza vaccination INFLUENZA (#1) [facility] Start: 2014 ADVANCE DIRECTIVE DISCUSSION ADVANCE DIRECTIVE DISCUSSION [facility] Start: 2014 BONE DENSITY BONE DENSITY [facility] Start: 2014 PNEUMOVAX AGE 65 AND OVER WITH 5YR LOOKBACK (#1) PNEUMOVAX AGE 65 AND OVER WITH 5YR LOOKBACK (#1) [facility] Start: 1999 Screening for malign ant neoplasm of colon [facility] Start: 1999 SHINGRIX VACCINE (1 of 2) RASMUSSEN GRIX VACCINE (1 of 2) [facility] Start: 1994 DIABETES SCREEN DIABETES SCREEN [facility] Start: 1994 LIPID SCREEN LIPID SCREEN [facility] Start: 1989 Mammography MAMMOGRAM [facility] Start: 1968 Urine microalbumin profile DTAP,TDAP ,TD (1 - Tdap) [facility] Start: 1967 HEPATITIS C SCREENING HEPATITIS C SC ALISA [facility] End: 10-15-2021 CREATININE BLD CREATININE BLD Lab Routine Aneurysm of artery of neck (HCC) Nonruptured cerebral aneurysm Carotid artery aneurysm (HCC) 1 Occurrences starting 10/15/2020 until 10/15/2021 [facility] Payers Date Payer Category Payer Private Health Insurance [employer] C SHAUNA MEDICARE SUPPLEMENT [id number] 2015-Present Indemnity [id number] 2014 Medicare MEDICARE MEDICAR E A AND B [id number] 2014-Present [place] Medicare [id number] Social History Date Type Detail Facility Start: 10-15-2020 Tobacco smoking stat us NEIS Never smoker [facility] Start: 10-15-2020 Tobacco use and exposure Never used [facility] Start: 10-15-2020 Alcohol intake Lifetime non-d nallely (finding) [facility] Start: 10-15-2020 History SDOH Alcohol Frequency 1 [facility] Start: 1950 Sex Assigned At Not on file C [facility] Exposure to SARS-CoV -2 (event) Not sure [facility] Progress note 10-28-2021 Note Date & Type Note Facility 10-28-2021 Note HNO ID: [id number] Author: Supriya Whittaker MD Service: ? Author Type: Physician Type: Progress Notes Filed: 10/29/2021 2:37 PM Note Text: Gina Clancy is a 71 year old female who presents for problem visit to discuss HRT. HPI: Tried vaginal estrogen cream twice and noticed an improvement in mood. Had itching and irritation when using the vaginal estrogen cream, and had significant irritation from it. Feels her mood is what bothers her most. Currently on Zoloft. Was on Premarin before in the past years ago and did well with it, and says it did help with her mood. Her previous bladder trimmer had stopped the oral estrogen a few years ago given her age. No hot flashes or night sweats. Has vaginal dryness and irritation as well. Has used vaginal insert in the past and did well with it. 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 - Generalized anxiety disorder - History of intracranial aneurysm 1987 PAST SURGICAL HISTORY Procedure Laterality Date - APPENDECTOMY 02/23/2015 - ARTHRP ACETBLR/PROX FEM PROSTC AGRFT/ALGRFT 10/19/2010 Hip replacement, total - SIMPLE INTRACRANIAL ARYSM CAROTID CIRCULATION 09/18/1987 Intracranial aneurysm - TOTAL ABDOMINAL HYSTERECT W/WO RMVL TUBE OVARY 09/18/2004 Hysterectomy, AKIL FAMILY HISTORY Problem Relation Age of Onset - Heart disease Mother - other (aortic aneurysm) Father - No Known Problems Sister - Heart disease Brother - Alcohol abuse Brother - No Known Problems Brother - No Known Problems Brother - No Known Problems Brother Social History Tobacco Use - Smoking status: Never Smoker - Smokeless tobacco: Never Used Vaping Use - Vaping Use: Never used Substance Use Topics - Alcohol use: Not Currently - Drug use: Never Current Outpatient Medications Medication Sig - oxyCODONE-acetaminophen (PERCOCET) 7.5-325 mg tablet - fluticasone propionate (FLONASE NASAL) Use in the nose once daily. - sertraline (ZOLOFT) 100 mg tablet Take 100 mg by mouth once daily. - gabapentin (NEURONTIN) 300 mg capsule Take 1 capsule by mouth twice daily. - omeprazole (PRILOSEC) 20 mg capsule Take 1 capsule by mouth as needed. - Estradiol (VAGIFEM) 10 mcg vaginal tablet Use 1 tablet vaginally once daily. Once daily for 2 weeks and then twice weekly. - amitriptyline (ELAVIL) 10 mg tablet Take 10 mg by mouth once daily. (Patient not taking: Reported on 07/13/2021 ) - baclofen (LIORESAL) 5 mg tablet (Patient not taking: Reported on 10/28/2021 ) - Benzonatate 200 mg capsule (Patient not taking: Reported on 08/13/2021 ) - celecoxib (CELEBREX) 200 mg capsule Take 200 mg by mouth. (Patient not taking: Reported on 07/13/2021 ) - fluticasone-salmeterol (ADVAIR) 500-50 mcg/dose dsdv (Patient not taking: Reported on 08/13/2021 ) - atorvastatin (LIPITOR) 10 mg tablet Take 10 mg by mouth once daily. (Patient not taking: Reported on 10/28/2021 ) No current facility-administered medications for this visit. Allergies As of Date: 10/28/2021 Allergen Noted Reaction NSAIDS (NON-STEROIDAL ANTI-INFLAM*06/06/2019 GI Upset PNEUMOVAX 23 [PNEUMOCOCCAL 23-EUGENE*06/06/2019 Hives Fully Assessed 10/28/2021 REVIEW OF SYSTEMS Expanded ROS: N/A Allergies and current medication updated:Yes EXAM: BP 128/80 Wt 158 lb (71.7kg) GENERAL: pleasant, female in no apparent distress HEENT: Normocephalic, atraumatic, mucus membranes moist and no lesions NECK: full range of motion CHEST: Normal inspiratory effort NEURO: exam grossly non-focal EXTREMITIES: normal ASSESSMENT AND PLAN: Encounter Diagnosis ICD-10-CM 1. Vaginal dryness, menopausal N95.1 Estradiol (VAGIFEM) 10 mcg vaginal tablet 2. Menopausal state N95.1 Estradiol (VAGIFEM) 10 mcg vaginal tablet 3. Vaginal atrophy N95.2 Estradiol (VAGIFEM) 10 mcg vaginal tablet Discussed indications for HRT Reviewed r/b/a to HRT Recommend trying either vaginal estrogen tablet or ring Do not recommend oral estrogen at this time given symptoms and age Patient would like to try Vagifem and will call or message with an update in 2 wks RTO annual exams and PRN Supriya Whittaker DO Medical Decision Making: Problems: Low: Stable chronic illness Risk: Moderate: Drug management Medical Decision Making Level: 3 - Low [facility] Progress note 08-13-2021 Note Date & Type Note Facility 08-13-2021 Note HNO ID: [id number] Author: Supriya Whittaker MD Service: ? Author Type: Physician Type: Progress Notes Filed: 08/13/2021 2:16 PM Note Text: Gina Clanyc is a 71 year old female who presents to [facility]. HPI: She saw her bladder trimmer last month for an annual exam. Transferring care here as she lives here in [place] and bladder trimmer was in [place]. Had pelvic exam at that time. H/o hysterectomy. H/o abnormal pap smear with a cervical procedure done years before the hysterectomy. Pap smears were normal just prior to hysterectomy. Hysterectomy was for cramping and bleeding. Years later she had both ovaries removed for a benign ovarian cyst. Not currently sexually active. Last sexual active about 1 year ago. Significant vaginal dryness and pain with insertion. Unable to have intercourse due to the pain. Wants to discuss treatment options for this. She was given an estrogen cream that she did not sheepskin pickler because of cost. OB History No obstetric history on file. 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 - Generalized anxiety disorder - History of intracranial aneurysm 1987 PAST SURGICAL HISTORY Procedure Laterality Date - ANEURYSM SURG/CAROTID CIRC 09/18/1987 Intracranial aneurysm - APPENDECTOMY 02/23/2015 - TOTAL ABDOM HYSTERECTOMY 09/18/2004 Hysterectomy, AKIL - TOTAL HIP REPLACEMENT 10/19/2010 Hip replacement, total FAMILY HISTORY Problem Relation Age of Onset - Heart disease Mother - other (aortic aneurysm) Father - No Known Problems Sister - Heart disease Brother - Alcohol abuse Brother - No Known Problems Brother - No Known Problems Brother - No Known Problems Brother Social History Tobacco Use - Smoking status: Never Smoker - Smokeless tobacco: Never Used Vaping Use - Vaping Use: Never used Substance Use Topics - Alcohol use: Not Currently - Drug use: Never Current Outpatient Medications Medication Sig - baclofen (LIORESAL) 5 mg tablet - oxyCODONE-acetaminophen (PERCOCET) 7.5-325 mg tablet - fluticasone propionate (FLONASE NASAL) Use in the nose once daily. - atorvastatin (LIPITOR) 10 mg tablet Take 10 mg by mouth once daily. - sertraline (ZOLOFT) 100 mg tablet Take 100 mg by mouth once daily. - gabapentin (NEURONTIN) 300 mg capsule Take 1 capsule by mouth twice daily. - omeprazole (PRILOSEC) 20 mg capsule Take 1 capsule by mouth as needed. - amitriptyline (ELAVIL) 10 mg tablet Take 10 mg by mouth once daily. (Patient not taking: Reported on 07/13/2021 ) - Benzonatate 200 mg capsule (Patient not taking: Reported on 08/13/2021 ) - celecoxib (CELEBREX) 200 mg capsule Take 200 mg by mouth. (Patient not taking: Reported on 07/13/2021 ) - fluticasone-salmeterol (ADVAIR) 500-50 mcg/dose dsdv (Patient not taking: Reported on 08/13/2021 ) - estradiol (ESTRACE) 0.01 % (0.1 mg/gram) vaginal cream Use 1 g vaginally two times a week. (Patient not taking: Reported on 08/13/2021 ) No current facility-administered medications for this visit. Allergies As of Date: 08/13/2021 Allergen Noted Reaction NSAIDS (NON-STEROIDAL ANTI-INFLAM*06/06/2019 GI Upset PNEUMOVAX 23 [PNEUMOCOCCAL 23-EUGENE*06/06/2019 Hives Fully Assessed 08/13/2021 REVIEW OF SYSTEMS Expanded ROS: N/A Allergies and current medication updated:Yes EXAM: BP 104/70 Ht 5' 6 (1.68m) Wt 158 lb 9.6 oz (71.9kg) BMI 25.61 kg/(m2). GENERAL: pleasant, female in no apparent distress HEENT: Normocephalic, atraumatic, mucus membranes moist and no lesions NECK: full range of motion DERMATOLOGY: Normal, without lesions, non-icteric and non-hirsute CHEST: Normal inspiratory effort NEURO: exam grossly non-focal EXTREMITIES: normal ASSESSMENT AND PLAN: Encounter Diagnosis ICD-10-CM 1. Vaginal dryness N89.8 2. Superficial dyspareunia N94.11 Discussed r/b/a to vaginal estrogen cream and proper use. Will send rx to [facility]. Information given on lubricants and moisturizers. RTO annual exams and PRN. Medical Decision Making: Problems: Low: Stable chronic illness Risk: Moderate: Drug management Medical Decision Making Level: 3 - Low Supriya Wiswell, DO [facility] Progress note 07-28-2021 Note Date & Type Note Facility 07-28-2021 Note HNO ID: [id number] Author: RT John(R) Service: ? Author Type: Technologist Type: Progress Notes Filed: 07/28/2021 11:35 AM Note Text: Radiology Service Progress Note PATIENT NAME: Gina Clancy DATE OF SERVICE: July 28, 2021 TIME: 11:07 AM PATIENT IDENTITY VERIFICATION COMPLETED USING TWO (2) IDENTIFIERS: Name and Date of confirmed by patient verbally. FALL SCREENING: Has the patient had 2 falls in the last year or 1 fall with injury or currently using an Ambulatory Assistive Device (Walker, Cane, Wheelchair, Crutches, etc.)? No PATIENT GENDER DATA: Female. status: : No status: NO. PATIENT RELEVANT IMPLANT DATA REVIEWED: Not Applicable RADIOLOGY DEPARTMENT: Mammography PERIPHERAL IV DATA: Not applicable SIGNED BY: RT John(R) July 28, 2021 11:07 AM [facility] Progress note 07-13-2021 Note Date & Type Note Facility 07-13-2021 Note HNO ID: [id number] Author: Pratik Pina MD Service: ? Author Type: Physician Type: Progress Notes Filed: 07/16/2021 8:30 AM Note Text: Gynecologic Oncology [facility] [place] General Consultation Date: 07/13/2021 PROBLEM/CC: Gina Clancy is a consult from Dr. Jennings to follow up for cervical dysplasia. HPI: Ms. Clancy is a 71 year old female who presents today for evaluation and management of dyspareunia and bleeding with intercourse. Patient has a history of cervical dysplasia. Pertinent surgical history includes a hysterectomy. 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 - Generalized anxiety disorder - History of intracranial aneurysm 1987 PAST SURGICAL HISTORY Procedure Laterality Date - ANEURYSM SURG/CAROTID CIRC 09/18/1987 Intracranial aneurysm - APPENDECTOMY 02/23/2015 - TOTAL ABDOM HYSTERECTOMY 09/18/2004 Hysterectomy, AKIL - TOTAL HIP REPLACEMENT 10/19/2010 Hip replacement, total FAMILY HISTORY Problem Relation Age of Onset - Heart disease Mother - other (aortic aneurysm) Father - Heart disease Brother - Alcohol abuse Brother - No Known Problems Brother Family history of breast, ovarian, uterine or colon cancer: No Family history of VTE: No Social History Tobacco Use - Smoking status: Never Smoker - Smokeless tobacco: Never Used Substance Use Topics - Alcohol use: Never - Drug use: Never Occupation: Marital Status: Single PAST GYNECOLOGIC HISTORY: OB History No obstetric history on file. LMP: No LMP recorded. Patient has had a hysterectomy. Hormonal contraceptives: No. HRT use: Not currently History of abnormal pap: Yes HEALTH MAINTENANCE: Last pap: 3 years ago Last mammogram: Last colonoscopy: ALLERGIES Allergen Reactions - Nsaids (Non-Steroid* GI Upset 5 colonic ulcers - Pneumovax 23 [Pneum* Hives baclofen (LIORESAL) 5 mg tablet Benzonatate 200 mg capsule fluticasone-salmeterol (ADVAIR) 500-50 mcg/dose dsdv oxyCODONE-acetaminophen (PERCOCET) 7.5-325 mg tablet fluticasone propionate (FLONASE NASAL) Use in the nose once daily. atorvastatin (LIPITOR) 10 mg tablet Take 10 mg by mouth once daily. sertraline (ZOLOFT) 100 mg tablet Take 100 mg by mouth once daily. gabapentin (NEURONTIN) 300 mg capsule Take 1 capsule by mouth twice daily. omeprazole (PRILOSEC) 20 mg capsule Take 1 capsule by mouth as needed. amitriptyline (ELAVIL) 10 mg tablet Take 10 mg by mouth once daily. celecoxib (CELEBREX) 200 mg capsule Take 200 mg by mouth. clotrimazole (MYCELEX) 10 mg cesia estrogens conjugated (PREMARIN) 0.625 mg tablet Take 0.625 mg by mouth. tiZANidine (ZANAFLEX) 4 mg tablet Take 1 tablet by mouth once daily as needed. ALPRAZolam (XANAX) 0.25 mg tablet Take 0.5 mg by mouth as needed. oxyCODONE IR (ROXICODONE) 10 mg tab Take 5 mg by mouth three times daily as needed. Her ECOG performance status is zero (fully active, able to carry on all pre-disease performance without restriction). REVIEW OF SYSTEMS: All other pertinent systems have been reviewed and are negative for complaints GENERAL: No recent weight loss, fever, chills, malaise or fatigue. HEENT: No changes in hearing or vision, frequent or severe headaches, nose bleeds or other nasal problems. NECK: No lumps, goiter, pain, significant neck swelling, or difficulty swallowing. RESPIRATORY: No shortness of breath, cough, wheezing, recent pneumonia (within last 6 weeks) or recent URI (within 2 weeks). CARDIOVASCULAR: No angina with activity or at rest, lower extremity edema, or palpitations. No recent [place] (within 6 months), cardiac stent, cardiac surgery, gangrene, or PVD. No history of hypertension. BREAST: No breast lumps, skin changes, nipple discharge, or adenopathy. GI: No abdominal pain, nausea, vomiting, diarrhea, or constipation. No prior history of esophageal varicies or ascites. Patient denies drinking >2 alcoholic beverages a day. : No dysuria, gross hematuria, urinary frequency, urinary urgency, or incontinence. No history of renal failure, dialysis, or recent UTI (<6 weeks). MUSCULOSKELETAL: No muscle weakness or joint pain. SKIN: No skin lesions, rashes, or itching. PSYCH: No sleep disturbances, depression, bipolar disorder, drug dependency/history of drug dependency, or recent psychosocial stressors. HEMATOLOGY/LYMPHOLOGY: No prolonged bleeding, bruising easily, swollen nodes, or anemia. No prior history of a blood clot or clotting disorder. No prior history of a bleeding disorder. Not on chronic anticoagulant/platelet medications. ENDOCRINE: No cold or heat intolerance, polyuria, polydipsia, polyphagia, goiter, hot flashes or night sweats. No prior diagnosis of diabetes or thyroid disorder. No chronic steroid use. NEURO: No history of paralysis, stroke/TIA, seizures, tremors, syncope, or paresthesias. OBJECTIVE: VITALS: BP 118 (more content not included)... [facility] Progress note 10-29-2020 Note Date & Type Note Facility 10-29-2020 Note HNO ID: [id number] Author: Michelet Raymundo Service: ? Author Type: Physician Type: Progress Notes Filed: 10/29/2020 1:32 PM Note Text: NEUROSURGERY FOLLOW UP OFFICE NOTE Dr. Michelet Raymundo MD, FACS Date of visit: October 29, 2020 Patient Name: Ms.Pamela Clancy Date of : 1950 Current Age: [age] year old Sex: female MRN/E# [id number] Last Office Visit: 10/15/2020 Chief Complaint: Patient presents with: Established Patient SUBJECTIVE: Ms. Clancy presents as a follow up visit with imaging for evaluation. She is a former patient who underwent a craniotomy for clipping of 2 unruptured aneurysms on 04/26/1988 at [facility]. She had overall done well until early 2018 when she developed pain in the right side of her head that persisted. She then developed headaches and ultimately underwent imaging of the brain. She was told she has 5 aneurysms on the L carotid artery and was told she needed surgical intervention immediately. She decided to follow up her for a second opinion.?Neurologically she was intact without focal deficit and she denied any headache or concerning symptoms. 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 She was referred to Dr. Chrissy Cavazos for review of her scans and opinion. She failed to follow up however. At her visit on 10/15/2019 she described episodes of migraine headaches and lightheadedness. She is getting pain on the right side of her neck and under her jaw. She moved up to [place] from [place] and established with a new PCP, Dr. Gutiérrez, who recommended that she follow up with neurosurgery. She was sent for updated imaging of the head and neck and states she is doing overall well. Symptoms are unchanged. She presents today for evaluation and plan of care. Symptoms: headaches, lightheadedness, right neck and jaw pain ? PREVIOUS CONSERVATIVE TREATMENTS: None ? PREVIOUS SURGERY: SURGERY #1: Craniotomy for clipping of 2 unruptured aneurysms on 04/26/88 at [facility] per Dr. Raymundo. PAIN EVALUATION No data found in the last 1 encounters. No past medical history on file. PAST SURGICAL HISTORY Procedure Laterality Date - ANEURYSM SURG/CAROTID CIRC 1987 Intracranial aneurysm - TOTAL ABDOM HYSTERECTOMY 2004 Hysterectomy, AKIL - TOTAL HIP REPLACEMENT 10/2010 Hip replacement, total No family history on file. ALLERGIES Allergen Reactions - Nsaids (Non-Steroid* GI Upset 5 colonic ulcers - Pneumovax 23 [Pneum* Hives Current Outpatient Medications Medication Sig Dispense Refill - atorvastatin (LIPITOR) 10 mg tablet Take 10 mg by mouth once daily. - sertraline (ZOLOFT) 100 mg tablet Take 100 mg by mouth once daily. - tiZANidine (ZANAFLEX) 4 mg tablet Take 1 tablet by mouth once daily as needed. - gabapentin (NEURONTIN) 300 mg capsule Take 1 capsule by mouth twice daily. - omeprazole (PRILOSEC) 20 mg capsule Take 1 capsule by mouth as needed. - ALPRAZolam (XANAX) 0.25 mg tablet Take 0.5 mg by mouth as needed. 0 - oxyCODONE IR (ROXICODONE) 10 mg tab Take 5 mg by mouth three times daily as needed. 0 No current facility-administered medications for this visit. REVIEW OF SYSTEMS Review of Systems Constitutional: Negative for chills, diaphoresis and fever. HENT: Negative for congestion, drooling and tinnitus. Eyes: Negative for photophobia, redness and visual disturbance. Respiratory: Negative for cough, shortness of breath and wheezing. Cardiovascular: Negative for chest pain, palpitations and leg swelling. Gastrointestinal: Negative for constipation, diarrhea, nausea and vomiting. Endocrine: Negative for cold intolerance and heat intolerance. Genitourinary: Negative for difficulty urinating, dysuria, frequency and urgency. Musculoskeletal: Negative for back pain, gait problem and neck pain. Skin: Negative for rash and wound. Allergic/Immunologic: Negative for environmental allergies and food allergies. Neurological: Positive for light-headedness and headaches. Negative for dizziness, weakness and numbness. Hematological: Negative for adenopathy. Does not bruise/bleed easily. Psychiatric/Behavioral: Negative for agitation and confusion. The patient is not nervous/anxious. OBJECTIVE: BP 120/54 Pulse 66 Temp 97.2 Resp 16 Ht 5' 6 (1.68m) Wt 148 lb (67.1kg) SpO2 100% BMI 23.90 kg/(m2). PHYSICAL EXAM: Mental State : Alert, memory function unremarkable. Attention span and concentration normal for patient's age. Speech normal, no receptive or expressive speech deficit. Recent and remote memory normal. Orientation : Oriented to person, place and time. Higher Cortical Function : Intact speech and language. Spontaneous speech and comprehension normal. Fund of knowledge intact for pt level of education. Cranial Nerves : II: No visual field cut no blurring, Makes and sustains eye contact III, IV, : Normal, no double vision or drooping. Pupils equal and reactive to light. Ext (more content not included)... [facility] Progress note 10-15-2020 Note Date & Type Note Facility 10-15-2020 Note HNO ID: [id number] Author: Michelet Raymundo Service: ? Author Type: Physician Type: Progress Notes Filed: 10/19/2020 12:43 PM Note Text: NEUROSURGERY FOLLOW UP OFFICE NOTE Dr. Michelet Raymnudo MD, FACS Date of visit: October 13, 2020 Patient Name: Ms.Pamela Clancy Date of : 1950 Current Age: [age] year old Sex: female MRN/E# [id number] Last Office Visit: June 06, 2019 Chief Complaint: Patient presents with: Established Patient SUBJECTIVE: The patient presents as a follow up without imaging for evaluation. She is a former patient who underwent a craniotomy for clipping of 2 unruptured aneurysms on 04/26/1988 at [facility]. She had overall done well until early 2018 when she developed pain in the right side of her head that persisted. She then developed headaches and ultimately underwent imaging of the brain. She was told she has 5 aneurysms on the L carotid artery and was told she needed surgical intervention immediately. She decided to follow up her for a second opinion. Neurologically she was intact without focal deficit and she denied any headache or concerning symptoms. 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 She was referred to Dr. Chrissy Cavazos for review of her scans and opinion.She failed to follow up however. Today she states she has had episodes of migraine headaches and lightheadedness. She is getting pain on the right side of her neck and under her jaw. She moved up to [place] from [place] and established with a new PCP, Dr. Gutiérrez, who recommended that she follow up with neurosurgery. Presents for image review, evaluation and plan of care. Symptoms: headaches, lightheadedness, right neck and jaw pain PREVIOUS CONSERVATIVE TREATMENTS: None PREVIOUS SURGERY: SURGERY #1: Craniotomy for clipping of 2 unruptured aneurysms on 04/26/88 at [facility] per Dr. Raymundo. PAIN EVALUATION No data found in the last 1 encounters. No past medical history on file. PAST SURGICAL HISTORY Procedure Laterality Date - ANEURYSM SURG/CAROTID CIRC 1987 Intracranial aneurysm - TOTAL ABDOM HYSTERECTOMY 2005 Hysterectomy, AKIL - TOTAL HIP REPLACEMENT 10/2010 Hip replacement, total No family history on file. ALLERGIES Allergen Reactions - Nsaids (Non-Steroid* GI Upset 5 colonic ulcers - Pneumovax 23 [Pneum* Hives Current Outpatient Medications Medication Sig Dispense Refill - atorvastatin (LIPITOR) 10 mg tablet Take 10 mg by mouth once daily. - iv contrast (will be provided with radiology test) CTA Head/Neck WO/W No IV access, insert saline lock prior to the sedation, infusion, injection for imaging exam. Discontinue saline lock post exam. If Pt. has a central line or IVAD, may access for administration according to line specific nursing protocol. Once exam is complete flush line and de-access according to line specific nursing protocol in the CT contrast administration guidelines link. 1 Each 0 - sertraline (ZOLOFT) 100 mg tablet Take 100 mg by mouth once daily. - tiZANidine (ZANAFLEX) 4 mg tablet Take 1 tablet by mouth once daily as needed. - gabapentin (NEURONTIN) 300 mg capsule Take 1 capsule by mouth twice daily. - omeprazole (PRILOSEC) 20 mg capsule Take 1 capsule by mouth as needed. - ALPRAZolam (XANAX) 0.25 mg tablet Take 0.5 mg by mouth as needed. 0 - oxyCODONE IR (ROXICODONE) 10 mg tab Take 5 mg by mouth three times daily as needed. 0 No current facility-administered medications for this visit. REVIEW OF SYSTEMS Review of Systems Constitutional: Negative for chills, diaphoresis (Negative for night sweats.) and fever. HENT: Negative for ear discharge and rhinorrhea. Eyes: Negative for discharge. Respiratory: Negative for cough, shortness of breath and wheezing. Cardiovascular: Negative for chest pain, palpitations and leg swelling. Gastrointestinal: Negative for constipation, diarrhea, nausea and vomiting. Endocrine: Negative for cold intolerance and heat intolerance. Genitourinary: Negative for frequency. Negative for urinary incontinence and urinary retention. Musculoskeletal: Negative for back pain, joint swelling, myalgias and neck pain. Skin: Negative for rash (Negative for hives and skin lesions.). Allergic/Immunologic: Negative for environmental allergies and food allergies. Negative for contact allergy, seasonal allergies. Neurological: Positive for dizziness and headaches. Negative for seizures, syncope, weakness, light-headedness and numbness (Negative for numbness in extremities.). Hematological: Does not bruise/bleed easily. Psychiatric/Behavioral: The patient is not nervous/anxious. Negative for depression. OBJECTIVE: BP 126/62 Pulse 65 Temp 98 Resp 16 Ht 5' 6 (1.68m) Wt 148 lb (67.1kg) SpO2 99% BMI 23.90 kg/(m2). PHYSICAL EXAM: Mental State : Alert, memory function unremarkable. Attention span and concentration normal for patient's age. Speech normal, no r (more content not included)... [facility] History of Present Illness * Michelet Raymundo - 10/15/2020 1:00 PM EST NEUROSURGERY FOLLOW UP OFFICE NOTE Dr. Michelet Raymundo MD, FACS Date of visit: October 13, 2020 Patient Name: Ms.Pamela Clancy Date of : 1950 Current Age: [age] year old Sex: female MRN/E# [id number] Last Office Visit: June 06, 2019 Chief Complaint: Patient presents with: Established Patient SUBJECTIVE: The patient presents as a follow up without imaging for evaluation. She is a former patient who underwent a craniotomy for clipping of 2 unruptured aneurysms on 04/26/1988 at [facility]. She had overall done well until early 2018 when she developed pain in the right side of her head that persisted. She then developed headaches and ultimately underwent imaging of the brain. She was told she has 5 aneurysms on the L carotid artery and was told she needed surgical intervention immediately. She decided to follow up her for a second opinion. Neurologically she was intact without focal deficit and she denied any headache or concerning symptoms. Imaging demonstrated a 5 mm pseudoaneurysm on the leftside. She was referred to Dr. Chrissy Cavazos for review of her scans and opinion.She failed to follow up however. Today she states she has had episodes of migraine headaches and lightheadedness. She is getting pain on the right side of her neck and under her jaw. She moved up to [place] from [place] and established with a new PCP, Dr. Gutiérrez, who recommended that she follow up with neurosurgery. Presents forimage review, evaluation and plan of care. Symptoms: headaches, lightheadedness, right neck and jaw pain PREVIOUS CONSERVATIVE TREATMENTS: None PREVIOUS SURGERY: SURGERY #1: Craniotomy for clipping of 2 unruptured aneurysms on 04/26/88 at [facility] per Dr. Raymundo. PAIN EVALUATION No data found in the last 1 encounters. No past medical history on file. PAST SURGICAL HISTORY Procedure Laterality Date ANEURYSM SURG/CAROTID CIRC 1987 Intracranial aneurysm TOTAL ABDOM HYSTERECTOMY 2005 Hysterectomy, AKIL TOTAL HIP REPLACEMENT 10/2010 Hip replacement, total No family history on file. ALLERGIES Allergen Reactions Nsaids (Non-Steroid* GI Upset 5 colonic ulcers Pneumovax 23 [Pneum* Hives Current Outpatient Medications Medication Sig Dispense Refill atorvastatin (LIPITOR) 10 mg tablet Take 10 mg by mouth once daily. iv contrast (will be provided with radiology test) CTA Head/Neck WO/W No IV access, insert saline lock prior to the sedation, infusion, injection for imaging exam. Discontinue saline lock post exam. If Pt. has a central line or IVAD, may access for administration according to line specific nursing protocol. Once exam is complete flush line and de-access according to line specific nursing protocolin the CT contrast administration guidelines link. 1 Each 0 sertraline (ZOLOFT) 100 mg tablet Take 100 mg by mouth once daily. tiZANidine (ZANAFLEX) 4 mg tablet Take 1 tablet by mouth once daily as needed. gabapentin (NEURONTIN) 300 mg capsule Take 1 capsule by mouth twice daily. omeprazole (PRILOSEC) 20 mg capsule Take 1 capsule by mouth as needed. ALPRAZolam (XANAX) 0.25 mg tablet Take 0.5 mg by mouth as needed. 0 oxyCODONE IR (ROXICODONE) 10 mg tab Take 5 mg by mouth three times daily as needed. 0 No current facility-administered medications for this visit. REVIEW OF SYSTEMS Review of Systems Constitutional: Negative for chills, diaphoresis (Negative for night sweats.) and fever. HENT: Negative for ear discharge and rhinorrhea. Eyes: Negative for discharge. Respiratory: Negative for cough, shortness of breath and wheezing. Cardiovascular: Negative for chest pain, palpitations and leg swelling. Gastrointestinal: Negative for constipation, diarrhea, nausea and vomiting. Endocrine: Negative for cold intolerance and heat intolerance. Genitourinary: Negative for frequency. Negative for urinary incontinence and urinary retention. Musculoskeletal: Negative for back pain, joint swelling, myalgias and neck pain. Skin: Negative for rash (Negative for hives and skin lesions.). Allergic/Immunologic: Negative for environmental allergies and food allergies. Negative for contact allergy, seasonal allergies. Neurological: Positive for dizziness and headaches. Negative for seizures, syncope, weakness, light-headedness and numbness (Negative for numbness in extremities.). Hematological: Does not bruise/bleed easily. Psychiatric/Behavioral: The patient is not nervous/anxious. Negative for depression. OBJECTIVE: BP 126/62 Pulse 65 Temp 98 Resp 16 Ht 5' 6 (1.68m) Wt 148 lb (67.1kg) SpO2 99% BMI 23.90 kg/(m^2). PHYSICAL EXAM: Mental State : Alert, memory function unremarkable. Attention span and concentration normal for patient's age. Speech normal, no receptive or expressive speech deficit. Recent and remote memory normal. Orientation : Oriented to person, place and time. Higher Cortical Function : Intact speech and language. Spontaneous speech and comprehension normal.Fund of knowledge intact for pt level of education. Cranial Nerves : II: No visual field cut no blurring, Makes and sustains eye contact III, IV, : Normal, no double vision or drooping. Pupils equal and reactive to light. Extraocularmuscles intact. No nystagmus V: Normal sensation on the face, normal jaw movements VII: No paresis on either side VIII: No gross hearing deficit IX: Good and equal shoulder shrugs XII: Tongue midline, no fasciculations Sensory: Normal Sensation in upper and lower extremities and trunk to touch and noxious stimuli. Motor: Normal muscle tone and bulk. No tremor or uncontrollable movements. No spasticity or tremor. Strength: Upper Extremities : R L Deltoid 5/5 5/5 Biceps 5/5 5/5 Triceps 5/5 5/5 Wrist Ext 5/5 5/5 Wrist Flx 5/5 5/5 Hand Int 5/5 5/5 Lower Extremities : Hip Flexors 5/5 5/5 Hip Extensors 5/5 5/5 Hip Abductors 5/5 5/5 Straight leg Neg Neg Ankle dorsiflex 5/5 5/5 Ankle Plantar 5/5 5/5 Heel Walking intact intact Toe Walking intact intact Reflexes : Biceps 2+ 2+ Triceps 2+ 2+ Wrist 2+ 2+ Patellar 2+ 2+ Achilles 2+ 2+ Sewell's Neg Neg Tinel's Neg Neg Cerebellar Function : Normal finger to nose. Normal rapid alternating movements. No ataxia. Negative Romberg. Gait and Station: Normal gait. No assistive device usage. Pulmonary: Lungs without cough, audible wheeze. Respirations unlabored. Cardiac: Regular rate and rhythm. No murmer, gallop or rub. IMAGING: No new imaging ASSESSMENT/PLAN: 1. 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 Cavazos previously because of fibromuscular hyperplasia carotid artery dissection and pseudoaneurysm and she was advised a stent however she did not want to have it done. She has not had any severe headaches or neurologic acute events but she wanted to be checked I examined her and she has no focal deficit. I recommended that we obtain a CT angiogram of the neck as well as the head to see if there is any change in the described aneurysm and hyperplasia. We will arrange these tests for her and see her after they are completed. - CREATININE BLD 2. 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 Carotid artery aneurysm (HCC) - ICD9: 442.81, ICD10: I72.0 - CTA HEAD WO/W IVCON - CTA NECK W IVCON - CREATININE BLD Michelet Raymundo MD Follow Up: Return for after CTA head and neck. This note was partially generated using [employer] voice recognition system, and there may be some incorrect words, spellings, and punctuation that were not noted in checking the note before saving. documented in this encounter Assessments Diagnosis Aneurysm of artery of neck (HCC)- Primary Aneurysm of artery of neck Nonruptured cerebral aneurysm Cerebral aneurysm, nonruptured Carotid artery aneurysm (HCC) Aneurysm of artery of neck Summary Purpose Family History No Family History Records FoundNo Family History Records Found Advance Directives No Advanced Directives Records FoundNo Advanced Directives Records Found Additional Source Comments Source Comments (unrecognize d section and content) In the event this informatio n is protected by the Federal Confidentiality of Alcohol and Drug Abuse Patient Records regulations: The Federal rules restrict any use of the information to criminally investigate or prosecute any alcohol or drug abuse patient.[facility] Reason for Visit (unrecogniz ed section and content) INFORMATION SOURCE (unrecogn ized section and content) DATE CREATED AUTHOR AUTHOR'S ROSENDO ATION 12/08/2021 [facility] FOR RECORDS PERTAINING TO PATIENTS WHO ARE OR HAVE BEEN ENROLLED IN A CHEMICAL DEPENDENCY/SUBSTANCEABUSE PROGRAM, SOME INFORMATION MAY BE OMITTED. This clinical summary was aggregated from multiple sources. Caution should be exercised in using it in the provision of clinical care. This summary normalizes information from multiple sources, and as a consequence, information in this document may materially change the coding, format and clinical context of patient data. In addition, data may be omitted in some cases. CLINICAL DECISIONS SHOULD BE BASED ON THE PRIMARY CLINICAL RECORDS. [employer] provides no warranty or guarantee of the accuracy or completeness of information in this document.
[2023-10-17 15:06] LABS: Absolute Neutrophil Count 2.5 X10^3/uL (2.0-7.7); Eosinophil# 0.18 X10^3/uL; Eosinophils% 3.5 % (0-5); Hematocrit 35.8 % (37-47); Hemoglobin 11.5 g/dL (12.0-15.0); Lymphocyte % 37.2 % (19-41); Mean Corp Hgb Conc 32.1 g/dL (32-36); Mean Corpuscular Hgb 30.1 pg (27.0-32.0); Mean Corpuscular Volume 93.7 fL (81-99); Monocyte# 0.39 X10^3/uL; Monocyte% 7.6 % (0-10); NRBC Flagged by Analyzer 0 % (0-5); Neutrophil # 2.54 X10^3/uL (2.7-7.7); Neutrophil % 49.7 % (47-70); Platelet Count 352 K/mm3 (150-450); RBC Distribution Width CV 13.1 % (11.6-14.6); RBC Distribution Width SD 44.7 fl (35.1-43.9); Red Blood Count 3.82 M/mm3 (4.2-5.4); White Blood Count 5.1 K/mm3 (4.4-11.0)
[2023-10-17 16:21] LABS: ALB/GLOB Ratio 1.3 RATIO (0.9-2.4); AST(SGOT) 22 U/L (15-37); Alanine Aminotransfer ALT/SGPT 26 U/L (13-56); Albumin, Serum 3.9 g/dL (3.2-5.0); Alkaline Phosphatase 72 U/L (45-117); Anion Gap 2 (5-15); BUN 4 mg/dL (7-18); Calcium,Total 9.3 mg/dL (8.5-10.1); Chloride 106 mmol/L (98-107); Creatinine, Serum 0.99 mg/dL (0.55-1.02); EST Glomerular Filtration Rate 58 mL/min (>60); Est Glom Filt Rate - Afr Amer 71 mL/min (>60); Glucose 97 mg/dL (74-106); Potassium 4.1 mmol/L (3.5-5.1); Protein, Total 6.9 g/dL (6.4-8.2); Sodium Level 137 mmol/L (136-145)
== END | disposition home or self-care (01) ==
PROVIDERS: PCP Family Medicine; Referring Provider Family Medicine; Visit Provider Family Medicine
DX: Z01.812 Encounter for preprocedural laboratory examination (principal); Z20.822 Contact with and (suspected) exposure to COVID-19
CPT/HCPCS: 36415; 80053; 85025

== ENCOUNTER 2023-12-15 12:30 | Outpatient (RCR) | payer MEDICARE, OTHER, SELFPAY ==
--- NOTE | 2023-12-13 14:30 | HP.PTEVAL_ITS ---
Patient's Visit Information Visit Information Visit Information: INDY CLANCY is a 73 year old F referred to Physical Therapy by Dr. Dat Prado MD with a diagnosis of L glute medius and minimus repair 11/02/23. Date of Evaluation: 12/13/23 Physical Therapist: Melvin Knott, PT, ATC Visit Plan Duration: 4-6 Weeks Plan: Follow protocol in folder L hip strengthening, core stab ex's, gait training, stair negotiation, bike, and HEP Subjective Subjective: DOS: 11/02/23: Pt reports she had been treated for LBP for a long time until finally getting an ultrasound which revealed several muscle tears. Pt reports she was in severe pain until she had the surgery which really helped to relieve her pain. Pt notes then she suffered a fall after surgery which jammed her L hip which resulted in pain again. Pt also notes increased pain in her L/S now secondary to her fall. Pt notes she is able to bear weight and walk using her L LE as long as she uses a walker. Pt reports she uses a wheelchair in public. Pt reports she has numbness on L lateral LE which is from her surgery. Pt reports she has 2 stairs to enter her home, but chooses to slide on her butt in order to be safe. Pt reports sleep difficulty at this time secondary to pain. Pt reports she is retired at this time. 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 Pt reports her pain is rated at 8/10 while sitting here in the clinic, 10/10 pain at worst. Pain L hip pain: Pain Intensity (Out of 10): 8 Pain Intensity Range: 10 Objective Objective: Neuro: L L4 dermatome is hyposensitive to light touch. All other B LE's are WNL to light touch. B LE patellar reflex= 2/3 Observation: Incisions are healed at this time. ROM: R hip flex= 90, ext= 10 degrees; L hip flex= 60, ext= 0 degrees MMT: R hip flex= 10, ext= 5 #F; L hip flex= 5, ext= 11 #F Gait: Pt is able to ambulate 340' with WW until experiencing increased pain and requesting a break Balance/Special Test Scores Lower Extremity Functional Score: 5 Goals Goal 1:: Decrease L hip pain x 50% to aid with sleep Goal Time Frame: 4-6 Weeks Goal 2:: Increase L hip strength to equal R hip strength to aid with stair negotiation Goal Time Frame: 4-6 Weeks Goal 3:: Increase L hip flexion strength x 20 degrees to aid with IADL's Goal Time Frame: 4-6 Weeks Goal 4:: I with HEP Goal Time Frame: 4-6 Weeks Rehabilitation Potential Physical Therapy Diagnosis: Pt has L hip pain, weakness, and intolerance for ambulation secondary to L hip surgery Rehabilitation Potential: Good Anticipated Interventions Patient/Client Instruction: Educate patient on: Condition and Plan of Care For the Purpose of:: To improve self management Therapeutic Exercise to Include: Strength training, Endurance training, Balance training, Flexibilty training, Gait and locomotor training, Active ROM and Dynamic Lumbar Stabilization For the Purpose of:: To decrease pain, To increase ROM and To improve muscle performance and motor function Cryotherapy (ice pack, ice massage): Yes For the Purpose of:: To decrease pain Text: Thank you for the opportunity to evaluate your patient. For Medicare and Medicare HMO plans, please review the plan of care and approve it. It will need to be FAXED BACK to us at [phone] for Medicare purposes. For Medicare only, by signing this I certify the plan of care. Please let me know if there are questions or concerns regarding this plan of care. Physician Signature:____ Date:
== END 2023-12-15 19:00 | disposition home or self-care (01) ==
LOC: PT 12:30
PROVIDERS: PCP Family Medicine; Referring Provider Orthopaedic Surgery Sports Medicine; Visit Provider Orthopaedic Surgery Sports Medicine
DX: S76.012D Strain of muscle, fascia and tendon of left hip, subsequent encounter (principal)
CPT/HCPCS: 97110; 97161

== ENCOUNTER 2024-04-26 10:30 | Outpatient (RCR) | payer MEDICARE, OTHER, SELFPAY ==
--- NOTE | 2024-03-28 13:07 | HP.PTEVAL ---
Patient's Visit Information Visit Information Visit Information: INDY CLANCY is a 73 year old F referred to Physical Therapy by Dr. Dat Prado MD with a diagnosis of L hip revision open gluteus medius and minimus repair. Date of Evaluation: 03/26/24 Physical Therapist: Toby Montoya DPT Visit Plan Frequency: 2x /Week Duration: 6 Weeks Plan: Start with quad an glute sets (25%), and TA activation. Progress per protocol. Manual to glute medius and along scar as needed. Pt. is currently NWBing on LLE for another 4 weeks. Progress slowly Subjective Subjective: Pt. is here today for her initial evaluation with diagnosis of L hip revision open gluteus medius and minimus repair and Rotium augmentation. DOS: Pt. was unsure of the date of her surgery, but thinks it was 4 weeks ago. Pt. reports having her L hip repair initially in Oct, but then she fell and re-tore her repair. She has a history of L LUIS as well ~12 years ago. Pt. has been non wt. bearing since surgery and has been basically at WC level with light transfers, SPT and standing in shower with use of balance aide and shower chair. Pt. reports minimal pain at this point in time, but still limited in use of L hip. Pt. was previously very independent, but did have high levels of pain. She is currently not driving. She denies N/T and no fever. Pt. is hopeful to get back to all recreational activities without limitations. Pain L hip: Pain Intensity (Out of 10): 1 Pain Intensity Range: 0 and 4 Objective Objective: POSTURE: Pt. has decent posture in sitting. Standing she does a great job of NWBing on her LLE. PALPATION: Pt. has well healing incision without signs of infection. Pt. has some adhesions along scarring, but minimal. NEURO: normal sensation and normal DTR of BLEs. ROM: L hip: PROM: flexon 90deg, abd 20deg, ER and IR not tested. MMT: Pt. has good quad set, taught light glute sets to 25% activation (good demo). 5/5 RLE strength. Balance/Special Test Scores Lower Extremity Functional Score: 4 Goals Goal 1:: LTG: Pt. to be I with HEP for hip ROM and strengthening. Goal Time Frame: 4-6 Weeks Goal 2:: LTG: Pt. to have normal gait pattern with FWW with good WBing tolerance. Goal Time Frame: 6-8 Weeks Goal 3:: LTG: Pt. to 4/5 strength throughout LLE allowing progression to phase III Goal Time Frame: 8-12 Weeks Goal 4:: LTG: Pt. to have normal L hip ROM without increase in symptoms. Goal Time Frame: 6-8 Weeks Rehabilitation Potential Physical Therapy Diagnosis: Pt. has signs and symptoms consistent with L hip revision of glutes medius and minimus. Pt. would benefit from PT to work on ROM progressing to strengthening and back to all functional activities. Rehabilitation Potential: Excellent Anticipated Interventions Patient/Client Instruction: Educate patient on: Condition, Plan of Care, Risk Factors and Benefits of Fitness Program For the Purpose of:: To decrease pain, To decrease swelling/inflammation, To increase ROM, To improve nutrient delivery to tissue, To increase oxygenation perfusion and To improve muscle performance and motor function Therapeutic Exercise to Include: Strength training, Power training, Endurance training, Flexibilty training, Gait and locomotor training, Passive ROM, Active ROM and Dynamic Lumbar Stabilization For the Purpose of:: To decrease pain, To increase ROM, To improve nutrient delivery to tissue, To increase oxygenation perfusion, To improve muscle performance and motor function and To improve ability to perform ADL's Manual Therapy Techniques to Include: Massage and Soft tissue mobilization For the Purpose of:: To decrease pain, To increase ROM, To improve nutrient delivery to tissue, To increase oxygenation perfusion and To improve muscle performance and motor function Text: Thank you for the opportunity to evaluate your patient. For Medicare and Medicare HMO plans, please review the plan of care and approve it. It will need to be FAXED BACK to us at [phone] for Medicare purposes. For Medicare only, by signing this I certify the plan of care. Please let me know if there are questions or concerns regarding this plan of care. Physician Signature: Date:
== END 2024-04-26 19:00 | disposition home or self-care (01) ==
LOC: PT 10:30
PROVIDERS: PCP Family Medicine; Referring Provider Orthopaedic Surgery Sports Medicine; Visit Provider Orthopaedic Surgery Sports Medicine
DX: S76.012D Strain of muscle, fascia and tendon of left hip, subsequent encounter (principal)
CPT/HCPCS: 97110; 97161

== ENCOUNTER → 2024-07-04 | Outpatient (CLI) | payer MEDICARE, OTHER, SELFPAY ==
--- NOTE | 2024-07-04 12:38 | CDU_ITS ---
Reason For Study: Aneurysm of carotid artery Rt. Velocities/BP Lt. Velocities/BP Prox CCA 66.4/13.5 cm/sec. Prox CCA 68.3/14.5 cm/sec. Mid CCA 58.9/15.4 cm/sec. Mid CCA 57/14.5 cm/sec. Dist CCA 42.8/10.7 cm/sec. Dist CCA 47.4/13.3 cm/sec. Prox ICA 51.3/12.6 cm/sec. Prox ICA 56.1/14.2 cm/sec. Mid ICA 92.9/34.3 cm/sec. Mid ICA 72.7/30.8 cm/sec. Dist ICA 116.7/37.1 cm/sec. Dist ICA 106.6/38.1 cm/sec. Rt. ICA/CCA = 1.98. Lt. ICA/CCA = 1.87. Prox ECA 61.7/7.8 cm/sec. Prox ECA 45.6/7.2 cm/sec. Rt. Vert. 56/12.6 cm/sec. Lt. Vert. 56.1/17.7 cm/sec. Right Extracranial There is intimal thickening but no significant atherosclerotic plaque noted in the right common carotid artery. There is intimal thickening but no significant atherosclerotic plaque noted in the right internal carotid artery. The right internal carotid artery is very tortuous. Right ICA measures 0.94 x 0.95 cm. There is intimal thickening but no significant atherosclerotic plaque noted in the right external carotid artery. Antegrade flow is noted in the right vertebral artery. Left Extracranial There is intimal thickening but no significant atherosclerotic plaque noted in the left common carotid artery. There is intimal thickening but no significant atherosclerotic plaque noted in the left internal carotid artery. The left internal carotid artery is very tortuous. Left ICA prox measures 0.92 x 0.89 cm. There is intimal thickening but no significant atherosclerotic plaque noted in the left external carotid artery. Antegrade flow is noted in the left vertebral artery. Procedure Carotid Duplex 19643. This is a Carotid Duplex examination using B-mode, color flow and specral Doppler. Exam performed in department. VL/Carotid Duplex Ultrasound Interpretation Summary No significant atherosclerotic plaque or stenosis noted in the internal carotid arteries bilaterally. Flow within the vertebral arteries is antegrade bilaterally. Ordering Physician: Kaylee Trinidad Referring Physician: Rosana Ragland Performed By: Melanie Del Real RVT
== END | disposition home or self-care (01) ==
LOC: CVS 12:36
PROVIDERS: PCP Family Medicine; Referring Provider Registered Nurse; Visit Provider Registered Nurse
DX: I72.0 Aneurysm of carotid artery (principal)
CPT/HCPCS: 93880

== ENCOUNTER → 2024-12-31 | Outpatient (CLI) | payer MEDICARE, OTHER, SELFPAY ==
--- NOTE | 2024-12-31 14:46 | RAD_ITS ---
PROCEDURE: L/S SPINE COMP/W BENDING VIEWS 12/31/2024 REASON FOR EXAM: LUMBAR PAIN TECHNIQUE: 7 views of the lumbosacral spine; AP, bilateral oblique, lateral, flexion and extension and coned-down L5-S1 views COMPARISON: None available FINDINGS: 5 [id number] lumbar vertebral body types identified. Slight leftward offset of L3 on L4 on the AP view. 3-4 mm anterolisthesis L3 on L4 on the lateral view with severe appearing disc space narrowing, degenerative endplate changes. Moderate disc space narrowing and degenerative endplate changes L4-5. No evidence of instability identified on flexion-extension views. No fracture. No spondylolysis identified. Atherosclerotic calcifications. Status post left hip replacement. RAD/L/S Spine Comp/w Bending Views IMPRESSION: Spondylosis/discogenic change greatest at L3-4 as above. Reading Location: [id number]
== END | disposition home or self-care (01) ==
LOC: MTRAD 14:44
PROVIDERS: PCP Family Medicine; Referring Provider Clinical Nurse Specialist Adult Health; Visit Provider Clinical Nurse Specialist Adult Health
DX: M51.369 Other intervertebral disc degeneration, lumbar region without mention of lumbar back pain or lower extremity pain (principal)
CPT/HCPCS: 72114

== ENCOUNTER → 2025-01-23 | Outpatient (CLI) | payer MEDICARE, OTHER, SELFPAY ==
--- NOTE | 2025-01-23 15:14 | RAD_ITS ---
PROCEDURE: ANKLE MIN 3 VIEWS; KNEE 4 OR MORE VIEWS 01/23/2025 REASON FOR EXAM: PAIN TECHNIQUE: 3 views of the left ankle and knee COMPARISON: None FINDINGS: Left knee: Mild tricompartmental joint space narrowing. Small chondrocalcinosis. No acute fracture or dislocation. No significant joint effusion or soft tissue swelling. Left ankle: No acute fracture or dislocation. Ankle mortise is maintained. No significant soft tissue swelling. Small plantar calcaneal enthesophyte. RAD/Knee 4 or More Views IMPRESSION: No acute findings of the left knee and ankle. Degenerative changes as described above. Reading Location: [facility]
--- NOTE | 2025-01-23 15:14 | RAD_ITS ---
PROCEDURE: ANKLE MIN 3 VIEWS; KNEE 4 OR MORE VIEWS 01/23/2025 REASON FOR EXAM: PAIN TECHNIQUE: 3 views of the left ankle and knee COMPARISON: None FINDINGS: Left knee: Mild tricompartmental joint space narrowing. Small chondrocalcinosis. No acute fracture or dislocation. No significant joint effusion or soft tissue swelling. Left ankle: No acute fracture or dislocation. Ankle mortise is maintained. No significant soft tissue swelling. Small plantar calcaneal enthesophyte. RAD/Ankle min 3 Views IMPRESSION: No acute findings of the left knee and ankle. Degenerative changes as described above. Reading Location: [facility]
[2025-01-23 17:50] LABS: Absolute Lymphocyte Count 1.38 X10^3/uL (0.83-4.51); Absolute Neutrophil Count 2.7 X10^3/uL (2.0-7.7); Basophil# 0.07 X10^3/uL; Basophil% 1.5 % (0-1); Eosinophil# 0.26 X10^3/uL; Eosinophils% 5.5 % (0-5); Hemoglobin 11.6 g/dL (12.0-15.0); Lymphocyte # 1.38 X10^3/ul (0.83-4.51); Lymphocyte % 29.1 % (19-41); Mean Corp Hgb Conc 32.2 g/dL (32-36); Mean Corpuscular Hgb 30.4 pg (27.0-32.0); Mean Corpuscular Volume 94.5 fL (81-99); Mean Platelet Vol. 10.2 fl (6.2-12.0); Monocyte# 0.28 X10^3/uL; Monocyte% 5.9 % (0-10); NRBC Flagged by Analyzer 0 % (0-5); Neutrophil # 2.74 X10^3/uL (2.7-7.7); Neutrophil % 57.8 % (47-70); Platelet Count 353 K/mm3 (150-450); RBC Distribution Width SD 44.8 fl (35.1-43.9); Red Blood Count 3.81 M/mm3 (4.2-5.4); White Blood Count 4.7 K/mm3 (4.4-11.0)
[2025-01-23 18:22] LABS: ALB/GLOB Ratio 1.9 RATIO (0.9-2.4); AST(SGOT) 26 U/L (<=31); Alanine Aminotransfer ALT/SGPT 17 U/L (<=34); Albumin, Serum 4.3 g/dL (3.4-4.8); Alkaline Phosphatase 69 U/L (35-104); Anion Gap 10 (5-15); BUN 11 mg/dL (4-19); BUN/Creat Ratio 12.7 RATIO (10-20); Calcium,Total 9.7 mg/dL (7.6-11.0); Carbon Dioxide 25.8 mmol/L (21.0-32.0); Chloride 104 mmol/L (98-108); Creatinine, Serum 0.88 mg/dL (0.70-1.20); EST Glomerular Filtration Rate 69 (>60); Ferritin 32 ng/mL (22-378); Globulin 2.3 g/dL (2.2-4.2); Glucose 131 mg/dL (70-99); Iron 91 ug/dL (50-170); Iron Binding Capacity,Total 318 ug/dL (250-450); Iron Binding Capacity,Unsat 227 ug/dL (228-428); Potassium 4.3 mmol/L (3.3-5.1); Protein, Total 6.6 g/dL (5.9-8.4); Sodium Level 141 mmol/L (133-145); Vitamin B12 1417 pg/mL (180-914); Vitamin D,25 Hydroxy 28.7 ng/mL (30-100)
== END | disposition home or self-care (01) ==
PROVIDERS: PCP Family Medicine; Referring Provider Family Medicine; Visit Provider Family Medicine
DX: M25.562 Pain in left knee (principal); M25.572 Pain in left ankle and joints of left foot; D64.9 Anemia, unspecified
CPT/HCPCS: 73564; 73610; 80053; 82306; 82607; 82728; 83540; 83550; 85025

== ENCOUNTER → 2025-02-03 | Outpatient (CLI) | payer MEDICARE, OTHER, SELFPAY ==
--- NOTE | 2025-02-03 09:51 | VDLE_ITS ---
Reason For Study Reason For Study: Edema LLE RIGHT LEFT CFV is compressible, spontaneous, phasic, competent GSV is normal. and demonstrates normal augmentation. CFV is compressible, spontaneous, phasic, competent, Procedure and demonstrates normal augmentation. This is a venous duplex using B-mode, color flow and FV is compressible, spontaneous, phasic, competent spectral Doppler. and demonstrates normal augmentation. Exam performed in department. POP V is compressible, spontaneous, phasic, competent A preliminary report was called and/or faxed to and demonstrates normal augmentation. Obie. T/P Trunk is compressible. PTV is compressible. LT PerV is compressible. VL/Venous Duplex US, Unilateral Interpretation Summary Deep veins of the left lower extremity are patent and compressible segmentally. There is no evidence of left lower extremity deep vein thrombosis. Valvular competence appears intact within the p roximal deep venous system on the left . The left great saphenous vein appears patent and compressible segmentally. The right common femoral vein is patent and compressible . Ordering Physician: Rosana Ragland Referring Physician: Rosana Ragland Performed By: Julia Cordon, SHAWN, RVT
== END | disposition home or self-care (01) ==
LOC: CVS 09:50
PROVIDERS: PCP Family Medicine; Referring Provider Family Medicine; Visit Provider Family Medicine
DX: R60.0 Localized edema (principal)
CPT/HCPCS: 93971

== ENCOUNTER → 2025-04-18 | Outpatient (CLI) | payer MEDICARE, OTHER, SELFPAY ==
--- NOTE | 2025-04-18 12:41 | VDLE_ITS ---
Reason For Study Reason For Study: LLE Pain RIGHT LEFT CFV is compressible, spontaneous, phasic, competent GSV is normal. and demonstrates normal augmentation. CFV is compressible, spontaneous, phasic, competent, Procedure and demonstrates normal augmentation. This is a venous duplex using B-mode, color flow and FV is compressible, spontaneous, phasic, competent spectral Doppler. and demonstrates normal augmentation. Exam performed in department. POP V is compressible, spontaneous, phasic, competent The exam was diagnostic. and demonstrates normal augmentation. A preliminary report was called and/or faxed to T/P Trunk is compressible. Obie. PTV is compressible. LT PerV is compressible. VL/Venous Duplex US, Unilateral Interpretation Summary Deep veins of the left lower extremity are patent and compressible segmentally. There is no evidence of left lower extremity deep vein thrombosis. Valvular competence appears intact within the p roximal deep venous system on the left . The left great saphenous vein appears patent and compressible segmentally. The right common femoral vein is patent and compressible . Ordering Physician: Rosana Ragland Referring Physician: Rosana Ragland Performed By: Enzo Osuna RVT
== END | disposition home or self-care (01) ==
LOC: CVS 12:40
PROVIDERS: PCP Family Medicine; Referring Provider Family Medicine; Visit Provider Family Medicine
DX: M79.605 Pain in left leg (principal)
CPT/HCPCS: 93971

== ENCOUNTER → 2025-09-01 | Outpatient (CLI) | payer MEDICARE, OTHER, SELFPAY ==
[2025-09-01 17:32] LABS: Hematocrit 40.1 % (37-47); Hemoglobin 13.1 g/dL (12.0-15.0); Immature Granulocytes Count 0.020 X10^3/uL (0.0-0.0); Mean Corp Hgb Conc 32.7 g/dL (32-36); Mean Corpuscular Volume 93.9 fL (81-99); Mean Platelet Vol. 9.9 fl (6.2-12.0); NRBC Flagged by Analyzer 0 % (0-5); Platelet Count 404 K/mm3 (150-450); RBC Distribution Width CV 11.9 % (11.6-14.6); RBC Distribution Width SD 41.4 fl (35.1-43.9); Red Blood Count 4.27 M/mm3 (4.2-5.4); White Blood Count 6.1 K/mm3 (4.4-11.0)
[2025-09-01 18:30] LABS: AST(SGOT) 26 U/L (<=31); Alanine Aminotransfer ALT/SGPT 20 U/L (<=34); Albumin, Serum 4.6 g/dL (3.4-4.8); Alkaline Phosphatase 90 U/L (35-104); Anion Gap 10 (5-15); BUN 13 mg/dL (4-19); BUN/Creat Ratio 11.5 RATIO (10-20); Calcium,Total 9.7 mg/dL (7.6-11.0); Carbon Dioxide 25.3 mmol/L (21.0-32.0); Chloride 102 mmol/L (98-108); Globulin 2.6 g/dL (2.2-4.2); Glucose 113 mg/dL (70-99); Potassium 4.1 mmol/L (3.3-5.1)
== END | disposition home or self-care (01) ==
LOC: MTLAB 15:03
PROVIDERS: PCP Family Medicine; Referring Provider Family Medicine; Visit Provider Family Medicine
DX: D64.9 Anemia, unspecified (principal); R10.12 Left upper quadrant pain
CPT/HCPCS: 36415; 80053; 85025